=== PATIENT | male | born 1965 | race Caucasian/White ===

== ENCOUNTER 2017-04-14 23:44 | Emergency (ER) | payer MEDICAID ==
[~2017-04-14] VITALS: Ht 162.6 cm; Wt 78.0 kg
[2017-04-14] MEDS ORDERED: fentaNYL INJECTION 100 MCG/2 ML AMP IVP STA (23:51)
[2017-04-14] MEDS ORDERED: PRAZ2CAP PO (23:54)
[2017-04-14] MEDS ORDERED: NORT25CA PO (23:54)
[2017-04-14] MEDS ORDERED: PRAV40TA2 PO (23:54)
[2017-04-14] MEDS ORDERED: OMEP20TA33 PO (23:54)
[2017-04-14] MEDS ORDERED: ASPI-586 PO (23:54)
[2017-04-14] MEDS ORDERED: FLUT1DIS26 IH (23:54)
[2017-04-14] MEDS ORDERED: FAMO40TA72 PO (23:54)
[2017-04-14] MEDS ORDERED: METF1000 PO (23:54)
[2017-04-14] MEDS ORDERED: SUCR1TAB PO (23:54)
[2017-04-14] MEDS ORDERED: ASPI-992 PO (23:54)
[2017-04-14] MEDS ORDERED: SITA25TA5 PO (23:54)
[2017-04-14] MEDS ORDERED: FENO145T2 PO (23:54)
[2017-04-14] MEDS ORDERED: DICY10CA59 PO (23:54)
[2017-04-14] MEDS ORDERED: CALC-250 PO (23:54)
[2017-04-14] MEDS ORDERED: LACT10SO5 PO (23:54)
[2017-04-14] MEDS ORDERED: LEVO100T7 PO (23:54)
[2017-04-14] MEDS ORDERED: RT-ALBUINH IH (23:54)
[2017-04-14] MEDS ORDERED: LISI2.5T PO (23:54)
[2017-04-14] MEDS ORDERED: ONDA4TAB8 PO (23:54)
[2017-04-14] MEDS ORDERED: BUPR100T7 PO (23:54)
[2017-04-14] MEDS ORDERED: CITA40TA11 PO (23:54)
[2017-04-14] MEDS ORDERED: BUSP10TA95 PO (23:54)
[2017-04-14] MEDS ORDERED: GABA-488 PO (23:54)
[2017-04-15] MEDS ORDERED: ONDANSETRON 4 MG/2 ML (SDV) Z0FRAN IVP ONE
[2017-04-15 00:02] LABS: BASOPHILS # (AUTO) 0.1 10^3/uL (0.0-0.1); BASOPHILS % (AUTO) 1 % (0-10); EOSINOPHILS # (AUTO) 0.1 10^3/uL (0.0-0.3); EOSINOPHILS % (AUTO) 1 % (0-10); LYMPHOCYTES # (AUTO) 2.8 X 10^3 (1.0-4.0); LYMPHOCYTES % (AUTO) 27 % (12-44); MEAN CORPUSCULAR HEMOGLOBIN 33 PG (25-34); MEAN CORPUSCULAR HGB CONC 34 G/DL (32-36); MEAN CORPUSCULAR VOLUME 95 FL (80-99); MEAN PLATELET VOLUME 10.9 FL (7.4-10.4); MONOCYTES # (AUTO) 0.7 X 10^3 (0.0-1.0); MONOCYTES % (AUTO) 7 % (0-12); NEUTROPHILS # (AUTO) 6.6 X 10^3 (1.8-7.8); NEUTROPHILS % (AUTO) 64 % (42-75); PLATELET COUNT 141 10^3/uL (130-400); RED BLOOD COUNT 4.48 10^6/uL (4.35-5.85); RED CELL DISTRIBUTION WIDTH 13.4 % (10.0-14.5); WHITE BLOOD COUNT 10.3 10^3/uL (4.3-11.0)
[2017-04-15 00:20] LABS: ALANINE AMINOTRANSFERASE 19 U/L (0-55); ANION GAP 10 MMOL/L (5-14); ASPARTATE AMINO TRANSFERASE 14 U/L (5-34); BILIRUBIN,TOTAL 0.3 MG/DL (0.1-1.0); BLOOD UREA NITROGEN 8 MG/DL (7-18); BUN/CREATININE RATIO 11; CALCIUM 8.9 MG/DL (8.5-10.1); CARBON DIOXIDE 26 MMOL/L (21-32); CHLORIDE 104 MMOL/L (98-107); CREATININE SERUM 0.73 MG/DL (0.60-1.30); GFR ESTIMATED > 60; GLUCOSE 164 MG/DL (70-105); POTASSIUM 3.8 MMOL/L (3.6-5.0); SODIUM 140 MMOL/L (135-145)
--- NOTE | 2017-04-15 00:46 | ED Fall/Injury ---
General Chief Complaint: Trauma-Non Activation Stated Complaint: FALL,HIP PAIN Nursing Triage Note: Patient [place] and hitting head, denies LOC. c-collar in place. c/o R hip pain Source: patient Exam Limitations: no limitations History of Present Illness Time seen by provider: 23:47 Initial Comments [place] she [place] on the bathroom floor. She reports landing on her right buttock and hitting her head on the wall. Complains of right buttock pain and head pain. Denies loss of consciousness. Some mild nausea but no vomiting. Moderate pain reported. Here by EMS. EMS unable to get IV. Occurred: just prior to arrival Severity: moderate (45 minutes ago) Injuries/Pain Location: head, pelvis Context: slipped Loss of Consciousness: no loss of consciousness Modifying Factors: Improves With Immobilization, Worse With Movement Associated Symptoms (Fall): No Abdominal Pain, No Chest Pain, No Confusion, Headache, No Lightheadedness, No Nausea/Vomiting, No Neck Pain Allergies and Home Medications Allergies Coded Allergies: Penicillins (Verified Allergy, Unknown, 04/14/17) amoxicillin (Verified Allergy, Unknown, 04/14/17) ketorolac (Verified Allergy, Unknown, 04/14/17) levofloxacin (Verified Allergy, Unknown, 04/14/17) sumatriptan (Verified Allergy, Unknown, 04/14/17) trazodone (Verified Allergy, Unknown, 04/14/17) Home Medications Albuterol Sulfate 1 Puff Puff, 2 PUFF IH Q4H, (Reported) 1 PUFF = 90 MCG Aspirin 81 Mg Tablet.dr, 81 MG PO, (Reported) Aspirin/Acetaminophen/Caffeine 1 Each Tablet, 1 EACH PO, (Reported) Bupropion HCl 100 Mg Tablet.er, 100 MG PO, (Reported) Buspirone HCl 10 Mg Tablet, 10 MG PO, (Reported) Cholecalciferol 5,000 Unit Capsule, 5,000 UNIT PO, (Reported) Citalopram Hydrobromide 40 Mg Tablet, 40 MG PO, (Reported) Dicyclomine HCl 10 Mg Capsule, 10 MG PO, (Reported) Famotidine 40 Mg Tablet, 40 MG PO, (Reported) Fenofibrate Nanocrystallized 145 Mg Tablet, 145 MG PO, (Reported) Fluticasone/Salmeterol 1 Each Blst.w.dev, 1 EACH IH, (Reported) Gabapentin 300 Mg Capsule, 300 MG PO, (Reported) Lactulose 10 Gm/15 Ml Solution, 10 GM PO, (Reported) Levothyroxine Sodium 100 Mcg Tablet, 100 MCG PO, (Reported) Lisinopril 2.5 Mg Tablet, 2.5 MG PO DAILY, (Reported) Metformin HCl 1,000 Mg Tablet, 1,000 MG PO, (Reported) Nortriptyline HCl 25 Mg Capsule, 25 MG PO, (Reported) Omeprazole Magnesium 20 Mg Tablet.dr, 20 MG PO, (Reported) Ondansetron 4 Mg Tab.rapdis, 4 MG PO, (Reported) Pravastatin Sodium 40 Mg Tablet, 40 MG PO, (Reported) Prazosin HCl 2 Mg Capsule, 2 MG PO, (Reported) Sitagliptin Phosphate 25 Mg Tablet, 25 MG PO, (Reported) Sucralfate 1 Gm Tablet, 1 GM PO, (Reported) Constitutional: see HPI, No chills, No fever Eyes: No Symptoms Reported Ears, Nose, Mouth, Throat: no symptoms reported Respiratory: no symptoms reported Cardiovascular: no symptoms reported Gastrointestinal: see HPI, nausea, No vomiting Genitourinary: no symptoms reported Musculoskeletal: No back pain, joint pain, muscle pain Skin: no symptoms reported Psychiatric/Neurological: Headache (posterior right side aching), Denies Weakness All Other Systems Reviewed Negative Unless Noted: Yes Past Bevhwyd-Bclhff-Sipyig Hx Patient Social History Alcohol Use: Denies Use Recreational Drug Use: No Smoking Status: Former Smoker Recent Foreign Travel: No Contact w/Someone Who Travel: No Recent Infectious Disease Expo: No Recent Hopitalizations: No Physical Abuse: No Sexual Abuse: No Surgeries History of Surgeries: Yes Surgeries: Appendectomy, Gallbladder, Hysterectomy Respiratory History of Respiratory Disorde: Yes Respiratory Disorders: COPD Cardiovascular History of Cardiac Disorders: Yes Cardiac Disorders: High Cholesterol, Hypertension Neurological History of Neurological Disord: No Genitourinary History of Genitourinary Disor: No Gastrointestinal History of Gastrointestinal Di: Yes Gastrointestinal Disorders: Gastroesophageal Reflux Musculoskeletal History of Musculoskeletal Dis: No Endocrine History of Endocrine Disorders: Yes Endocrine Disorders: Hypothyroidsim, Diabetes, Non-Insulin dep HEENT History of HEENT Disorders: No Cancer History of Cancer: No Psychosocial History of Psychiatric Problem: Yes Behavioral Health Disorders: Anxiety, Depression Suicide Risk Score: 0 Integumentary History of Skin or Integumenta: No Reviewed Nursing Assessment Reviewed/Agree w Nursing PMH: Yes Family Medical History Significant Family History: No Pertinent Family Hx Physical Exam Vital Signs Vital Sign - Last 12Hours 04/14/17 23:56 Temp 98.4 Pulse 84 Resp 18 B/P (MAP) 170/80 Pulse Ox 95 Capillary Refill : Less Than 3 Seconds General Appearance: WD/WN, no apparent distress HEENT: PERRL/EOMI, pharynx normal Neck: No tender lateral, No tender midline Cardiovascular: regular rate, rhythm, no murmur Respiratory: lungs clear, normal breath sounds Gastrointestinal: non tender, soft Back: normal inspection, no CVA tenderness, no vertebral tenderness Extremities: pelvis stable, other (tender to that area of the right upper buttock without bruising noted.) Neurologic/Psychiatric: alert, oriented x 3 Skin: normal color, warm/dry, No ecchymosis Eunice Coma Score Best Eye Response: (4) Open Spontaneously Best Verbal Response: (5) Oriented Best Motor Response: (6) Obeys Commands Progress/Results/Core Measures Results/Orders Lab Results Laboratory Tests Test 04/14/17 23:55 Range/Units White Blood Count 10.3 4.3-11.0 10^3/uL Red Blood Count 4.48 4.35-5.85 10^6/uL Hemoglobin 14.7 13.3-17.7 G/DL Hematocrit 43 40-54 % Mean Corpuscular Volume 95 80-99 FL Mean Corpuscular Hemoglobin 33 25-34 PG Mean Corpuscular Hemoglobin Concent 34 32-36 G/DL Red Cell Distribution Width 13.4 10.0-14.5 % Platelet Count 141 130-400 10^3/uL Mean Platelet Volume 10.9 H 7.4-10.4 FL Neutrophils (%) (Auto) 64 42-75 % Lymphocytes (%) (Auto) 27 12-44 % Monocytes (%) (Auto) 7 0-12 % Eosinophils (%) (Auto) 1 0-10 % Basophils (%) (Auto) 1 0-10 % Neutrophils # (Auto) 6.6 1.8-7.8 X 10^3 Lymphocytes # (Auto) 2.8 1.0-4.0 X 10^3 Monocytes # (Auto) 0.7 0.0-1.0 X 10^3 Eosinophils # (Auto) 0.1 0.0-0.3 10^3/uL Basophils # (Auto) 0.1 0.0-0.1 10^3/uL Sodium Level 140 135-145 MMOL/L Potassium Level 3.8 3.6-5.0 MMOL/L Chloride Level 104 98-107 MMOL/L Carbon Dioxide Level 26 21-32 MMOL/L Anion Gap 10 5-14 MMOL/L Blood Urea Nitrogen 8 7-18 MG/DL Creatinine 0.73 0.60-1.30 MG/DL Estimat Glomerular Filtration Rate > 60 BUN/Creatinine Ratio 11 Glucose Level 164 H 70-105 MG/DL Calcium Level 8.9 8.5-10.1 MG/DL Total Bilirubin 0.3 0.1-1.0 MG/DL Aspartate Amino Transf (AST/SGOT) 14 5-34 U/L Alanine Aminotransferase (ALT/SGPT) 19 0-55 U/L Alkaline Phosphatase 73 40-136 U/L Total Protein 7.0 6.4-8.2 GM/DL Albumin 4.0 3.2-4.5 GM/DL My Orders Orders - DIOGO BROWNING MD Cbc With Automated Diff (04/14/17 23:51) Comprehensive Metabolic Panel (04/14/17 23:51) Fentanyl Injection (Sublimaze Injection (04/14/17 23:51) Saline Lock/Iv-Start (04/14/17 23:51) Ondansetron Injection (Zofran Injectio (04/15/17 00:00) Ct Head/Cervical Spine Wo (04/15/17 00:01) Hip, Right, 2 Views (04/15/17 00:01) Pelvis (04/15/17 00:01) Fentanyl Injection (Sublimaze Injection (04/15/17 00:51) Rx-Hydrocodone/Apap 5-325 Mg (Rx-Vicodin (04/15/17 01:45) Medications Given in ED Current Medications Medications Dose Ordered Sig/Brayden Route Start Time Stop Time Status Last Admin Dose Admin Ondansetron HCl 4 mg ONCE ONCE IVP 04/15/17 00:00 04/15/17 00:01 DC 04/14/17 23:59 4 MG Vital Signs/I&O Vital Sign - Last 12Hours 04/14/17 23:56 Temp 98.4 Pulse 84 Resp 18 B/P (MAP) 170/80 Pulse Ox 95 Blood Pressure Mean: 110 Progress Note : Progress Note Seen and evaluated. CT head and neck ordered. X-ray of pelvis and right hip. Basic labs ordered. Fentanyl 75 g IV ordered. Monitor patient. 0048: Patient complaining of persistent pain. Fentanyl 75 g IV ordered. Monitor patient. 0107: No acute fracture of C-spine and no intracranial injury noted. C-collar removed. Patient has full range of motion without pain. 0145: Overall doing better. Discharged home with return precautions. Patient verbalize understanding instructions and agreement with plan. Diagnostic Imaging Diagonstic Imaging: Xray Plain Films/CT/US/NM/MRI: pelvis Comments No acute fracture noted. Diagonstic Imaging: Xray Plain Films/CT/US/NM/MRI: hip Comments Right hip 2 view no acute fracture Diagonstic Imaging: CT Plain Films/CT/US/NM/MRI: c-spine, head Comments No acute intracranial hemorrhage, mass effect, midline shift, herniation or hydrocephalus. C-spine shows no fracture or significant malalignment. Reviewed: Reviewed Night [facility] Study Departure Impression Impression: Primary Impression: Minor head injury without loss of consciousness Qualified Codes: S09.90XA - Unspecified injury of head, initial encounter Additional Impression: Contusion of right hip Qualified Codes: S70.01XA - Contusion of right hip, initial encounter Disposition: HOME, SELF-CARE Condition: Improved Departure-Patient Inst. Referrals: NO,LOCAL PHYSICIAN (PCP/Family) Primary Care Physician Patient Instructions: Contusion (DC), Minor Head Injury (DC) Add. Discharge Instructions: All discharge instructions reviewed with patient and/or family. Voiced understanding. Take medications as directed. Follow-up with your DrAngella in a few days for recheck. Return for worse pain, fever, vomiting, weakness, breathing problems or other concerns as needed. Scripts Hydrocodone/Acetaminophen (Hydrocodon-Acetaminoph 7.5-325) 1 Each Tablet 1 EACH PO Q6H, #10 TAB 0 Refills Prov: DIOGO BROWNING MD 04/15/17 DIOGO BROWNING MD Apr 15, 2017 00:46
[2017-04-15] MEDS ORDERED: fentaNYL INJECTION 100 MCG/2 ML AMP IVP STA (00:51)
[2017-04-15] MEDS ORDERED: RX-HYDROCODONE/APAP 5/325 MG #4 TAB PK PO PRN (01:45)
[2017-04-15] MEDS ORDERED: HYDR-3816 PO (01:47)
[2017-04-15 02:00] VITALS: BP 135/76
--- NOTE | 2017-04-15 07:36 | Diagnostic Imaging Report ---
PROCEDURE: CT head and CT cervical spine without contrast. TECHNIQUE: Multiple contiguous axial images were obtained through the brain and cervical spine without the use of intravenous contrast. Sagittal and coronal reformations through the cervical spine were then performed. INDICATION: Head and neck pain after fall. FINDINGS: The ventricles and sulci are within normal limits. There is no hydrocephalus. There is no midline shift. There is no intracranial mass, hemorrhage, or extra-axial fluid collection. Calvarium is intact. Sinuses and mastoid air cells are clear. There is straightening of the normal cervical lordosis. Vertebral body heights are well maintained. There is no fracture or traumatic subluxation. The odontoid is intact and lateral masses are well aligned. Prevertebral soft tissues are within normal limits. There is mild degenerative disc disease. IMPRESSION: No acute intracranial abnormality. Mild cervical spondylosis without acute fracture or traumatic subluxation. Dictated by: Dictated on workstation # [id number]
--- NOTE | 2017-04-15 07:44 | Diagnostic Imaging Report ---
EXAMINATION: Right hip, 2 views. COMPARISON: None. INDICATION: 51-year-old male, injury. Right hip pain. FINDINGS: The right hip is not dislocated. There is no pronounced joint space loss of the right hip. There are small acetabular osteophytes. There is no identified acute fracture. There are pelvic calcifications that likely relate to phleboliths. There is no identified radiopaque foreign body. IMPRESSION: 1. No identified acute bony abnormality of the right hip. Dictated by: Dictated on workstation # [id number]
--- NOTE | 2017-04-15 07:45 | Diagnostic Imaging Report ---
EXAMINATION: Pelvis, single view. COMPARISON: None. INDICATION: 51-year-old male, injury. Pelvic pain. FINDINGS: Pelvic calcifications compatible with phleboliths. The right hip is not dislocated. The left hip is not obviously dislocated. There is mild degenerative type enthesopathy at the right lesser trochanter. The hip joints are not significantly narrowed. There are very small acetabular osteophytes bilaterally. There is no abnormal widening of the sacroiliac joints or pubic symphysis. There is no identified acute fracture. IMPRESSION: 1. No identified acute bony abnormality of the pelvis. Dictated by: Dictated on workstation # [id number]
== END 2017-04-15 01:58 | disposition home or self-care (01) ==
LOC: ER 23:51
DX: S09.90XA Unspecified injury of head, initial encounter (principal); S70.01XA Contusion of right hip, initial encounter; J44.9 Chronic obstructive pulmonary disease, unspecified; E78.00 Pure hypercholesterolemia, unspecified; I10 Essential (primary) hypertension; K21.9 Gastro-esophageal reflux disease without esophagitis; E03.9 Hypothyroidism, unspecified; E11.9 Type 2 diabetes mellitus without complications; F41.9 Anxiety disorder, unspecified; F32.9 Major depressive disorder, single episode, unspecified; Z79.82 Long term (current) use of aspirin; Z79.84 Long term (current) use of oral hypoglycemic drugs; Z87.891 Personal history of nicotine dependence; Z90.49 Acquired absence of other specified parts of digestive tract; W01.198A Fall on same level from slipping, tripping and stumbling with subsequent striking against other object, initial encounter; Y92.002 Bathroom of unspecified non-institutional (private) residence as the place of occurrence of the external cause
CPT/HCPCS: 36415; 70450; 72125; 72170; 73502; 80053; 85025; 96374; 96375; 96376

== ENCOUNTER 2019-09-06 04:28 | Emergency (ER) | payer MEDICAID, OTHER ==
[~2019-09-06] VITALS: Ht 162.5 cm; Wt 76.2 kg
[~2019-09-06 04:28] MED LIST: ASPI-586 PO; ASPI-992 PO; BUPR100T7 PO; BUSP10TA95 PO; CALC-250 PO; CITA40TA11 PO; DICY10CA59 PO; FAMO40TA72 PO; FENO145T2 PO; FLUT1DIS26 IH; GABA-488 PO; HYDR-34 PO; LACT10SO27 PO; LEVO100T7 PO; LISI2.5T PO; METF-399 PO; NORT25CA PO; OMEP20TA33 PO; ONDA4TAB8 PO; PRAV40TA2 PO; PRAZ2CAP PO; RT-ALBUINH IH; SITA25TA5 PO; SUCR1TAB PO
[2019-09-06] MEDS ORDERED: diphenhydrAMINE 50 MG/ML INJ (BENADRYL) IVP ONE (04:45)
[2019-09-06 05:08] LABS: BASOPHILS % (AUTO) 0 % (0-10); EOSINOPHILS # (AUTO) 0.1 10^3/uL (0.0-0.3); EOSINOPHILS % (AUTO) 1 % (0-10); HEMATOCRIT 35 % (40-54); HEMOGLOBIN 11.6 G/DL (13.3-17.7); LYMPHOCYTES # (AUTO) 2.5 X 10^3 (1.0-4.0); LYMPHOCYTES % (AUTO) 24 % (12-44); MEAN CORPUSCULAR HEMOGLOBIN 30 PG (25-34); MEAN CORPUSCULAR HGB CONC 33 G/DL (32-36); MEAN CORPUSCULAR VOLUME 91 FL (80-99); MEAN PLATELET VOLUME 11.8 FL (7.4-10.4); MONOCYTES # (AUTO) 0.9 X 10^3 (0.0-1.0); MONOCYTES % (AUTO) 8 % (0-12); NEUTROPHILS # (AUTO) 6.8 X 10^3 (1.8-7.8); NEUTROPHILS % (AUTO) 66 % (42-75); PLATELET COUNT 73 10^3/uL (130-400); RED CELL DISTRIBUTION WIDTH 12.9 % (10.0-14.5); WHITE BLOOD COUNT 10.4 10^3/uL (4.3-11.0)
[2019-09-06 05:09] LABS: BILIRUBIN,URINE NEGATIVE (NEGATIVE); CLARITY,URINE CLEAR; COLOR,URINE YELLOW; GLUCOSE, URINE (UA) 3+ (NEGATIVE); KETONES,URINE NEGATIVE (NEGATIVE); LEUKOCYTE ESTERASE ,URINE NEGATIVE (NEGATIVE); NITRITE,URINE NEGATIVE (NEGATIVE); PH,URINE 5.5 (5-9); PROTEIN,URINE NEGATIVE (NEGATIVE)
[2019-09-06 05:18] LABS: BACTERIA,URINE TRACE /HPF; WBC,URINE 0-2 /HPF
[2019-09-06] MEDS ORDERED: ONDANSETRON 4 MG/2 ML (SDV) Z0FRAN IVP ONE (05:30)
[2019-09-06 05:34] VITALS: BP 128/63
[2019-09-06 05:37] LABS: ALANINE AMINOTRANSFERASE 22 U/L (0-55); ALBUMIN 4.1 GM/DL (3.2-4.5); ALKALINE PHOSPHATASE 99 U/L (40-136); BILIRUBIN,TOTAL 0.5 MG/DL (0.1-1.0); BUN/CREATININE RATIO 15; CALCIUM 9.4 MG/DL (8.5-10.1); CARBON DIOXIDE 23 MMOL/L (21-32); CHLORIDE 105 MMOL/L (98-107); CREATININE SERUM 0.82 MG/DL (0.60-1.30); GFR ESTIMATED > 60; GLUCOSE 148 MG/DL (70-105); MAGNESIUM 1.6 MG/DL (1.6-2.4); POTASSIUM 3.8 MMOL/L (3.6-5.0); SODIUM 142 MMOL/L (135-145)
[2019-09-06 05:58] LABS: FREE T4 (FREE THYROXINE) 0.94 NG/DL (0.70-1.48)
[2019-09-06] MEDS ORDERED: fentaNYL INJECTION 100 MCG/2 ML AMP IVP ONE (06:00)
[2019-09-06] MEDS ORDERED: NS IV 1000 ML 1,000 ML IV ONE (06:11)
[2019-09-06] MEDS ORDERED: PROMETHAZINE INJ 25 MG/ML (PHENERGAN) AMP IVP ONE (06:15)
[2019-09-06] MEDS ORDERED: MECLIZINE 25 MG (ANTIVERT) TAB PO ONE (06:15)
--- NOTE | 2019-09-06 06:16 | ED General ---
General Chief Complaint: Neurological Problems Stated Complaint: NAUSEA,SMILEY Nursing Triage Note: patient states she feels like she is on fire. was at the [facility] and all of the sudden she started feeling like she was on fire "clear down to my toes" Nursing Sepsis Screen: No Definite Risk Source of Information: Patient, EMS Exam Limitations: No Limitations (FELA LION MD) History of Present Illness Date Seen by Provider: Sep 06, 2019 Time Seen by Provider: 04:30 Initial Comments This 53-year-old woman presents to the emergency room with complaints of "feeling like I am on fire". She had been out [facility] the [facility] when symptoms presented. She had taken her home medications prior to leaving for the [facility]. She is markedly hypertensive on arrival. Fingerstick blood sugar was 183. She had a very similar episode at [facility] on September 01. This resolved with IV fluids and Benadryl. She has no focal neurologic deficits but has a vertiginous sensation of room spinning. She smokes but denies any drug or alcohol use. She describes history of stroke last February. She has had problems with dizziness with migraines even prior to the stroke. Her stroke affected vision in the right eye and she now wears a patch over the right eye. She reports having thyroid disease and she thought it was explained to her at [facility] that her symptoms were secondary to thyroid problems. Patient vomited on ce prior to assessment. (FELA LION MD) Allergies and Home Medications Allergies Coded Allergies: Penicillins (Verified Allergy, Unknown, 09/06/19) amoxicillin (Verified Allergy, Unknown, 09/06/19) ketorolac (Verified Allergy, Unknown, 09/06/19) levofloxacin (Verified Allergy, Unknown, 09/06/19) sumatriptan (Verified Allergy, Unknown, 09/06/19) trazodone (Verified Allergy, Unknown, 09/06/19) Home Medications Albuterol Sulfate 1 Puff Puff, 2 PUFF IH Q4H, (Reported) 1 PUFF = 90 MCG Hydrocodone Bit/Acetaminophen 1 Each Tablet, 1 EACH PO Q6H Prescribed by: DIOGO BROWNING on 04/15/17 0147 Lisinopril 2.5 Mg Tablet, 2.5 MG PO DAILY, (Reported) Patient Home Medication List Home Medication List Reviewed: Yes (FELA LION MD) Review of Systems Review of Systems Constitutional: no symptoms reported EENTM: no symptoms reported Respiratory: no symptoms reported Cardiovascular: see HPI Gastrointestinal: no symptoms reported Genitourinary: no symptoms reported Musculoskeletal: no symptoms reported Skin: no symptoms reported Psychiatric/Neurological: See HPI Hematologic/Lymphatic: No Symptoms Reported Immunological/Allergic: no symptoms reported (FELA LION MD) Past Bqlwxpj-Zhnytd-Ptgpnk Hx Past Med/Social Hx: Reviewed and Corrections made (FELA LION MD) Patient Social History Alcohol Use: Denies Use Recreational Drug Use: No Smoking Status: Current Everyday Smoker Recent Foreign Travel: No Contact w/Someone Who Travel: No Recent Infectious Disease Expo: No Recent Hopitalizations: No Physical Abuse: No Sexual Abuse: No Mistreated: No Fear: No (FELA LION MD) Past Medical History Surgeries: Yes Appendectomy, Gallbladder, Hysterectomy Respiratory: Yes COPD Cardiac: Yes High Cholesterol, Hypertension Neurological: Yes Headaches /Migraines Genitourinary: No Gastrointestinal: Yes Gastroesophageal Reflux Musculoskeletal: No Endocrine: Yes Hypothyroidsim, Diabetes, Non-Insulin dep HEENT: No Cancer: No Psychosocial: Yes Anxiety, Depression Integumentary: No (FELA LION MD) Family Medical History No Pertinent Family Hx (FELA LION MD) Physical Exam Vital Signs Vital Signs - First Documented 09/06/19 04:30 Temp 36.6 Pulse 112 Resp 20 B/P (MAP) 155/128 (137) (ILYA STALLWORTH DO) Vital Signs Capillary Refill : Less Than 3 Seconds (FELA LION MD) Height, Weight, BMI Height: 5'4.00" Weight: 172lbs. oz. 78.388308pt; 28.00 BMI Method:Stated General Appearance: No Apparent Distress, WD/WN HEENT: Normal ENT Inspection, Pharynx Normal, Other (patch over the right eye. Left eye normal with extraocular movement intact and pupillary response normal) Neck: Normal Inspection Respiratory: Lungs Clear, Normal Breath Sounds, No Accessory Muscle Use, No Respiratory Distress Cardiovascular: Regular Rate, Rhythm, No Edema, Normal Peripheral Pulses Gastrointestinal: Normal Bowel Sounds, Non Tender, Soft Extremity: Normal Inspection, No Pedal Edema Neurologic/Psychiatric: Alert, Oriented x3, No Motor/Sensory Deficits, Normal Mood/Affect, biometric technician II-XII Norm as Tested, Other (normal finger to nose and heel to wright) Skin: Normal Color, Warm/Dry (FELA LION MD) Progress/Results/Core Measures Suspected Sepsis Recent Fever Within 48 Hours: No Infection Criteria Present: None New/Unexplained Altered Menta: No Sepsis Screen: No Definite Risk SIRS Temperature: Pulse: 112 Respiratory Rate: 20 Laboratory Tests 09/06/19 04:45: White Blood Count 10.4 Blood Pressure 128 /63 Mean: 84 Laboratory Tests 09/06/19 04:45: Creatinine 0.82, Platelet Count 73L, Total Bilirubin 0.5 (FELA LION MD) Results/Orders Lab Results Laboratory Tests Test 09/06/19 04:45 09/06/19 04:49 09/06/19 05:04 Range/Units White Blood Count 10.4 4.3-11.0 10^3/uL Red Blood Count 3.85 L 4.35-5.85 10^6/uL Hemoglobin 11.6 L 13.3-17.7 G/DL Hematocrit 35 L 40-54 % Mean Corpuscular Volume 91 80-99 FL Mean Corpuscular Hemoglobin 30 25-34 PG Mean Corpuscular Hemoglobin Concent 33 32-36 G/DL Red Cell Distribution Width 12.9 10.0-14.5 % Platelet Count 73 L 130-400 10^3/uL Mean Platelet Volume 11.8 H 7.4-10.4 FL Neutrophils (%) (Auto) 66 42-75 % Lymphocytes (%) (Auto) 24 12-44 % Monocytes (%) (Auto) 8 0-12 % Eosinophils (%) (Auto) 1 0-10 % Basophils (%) (Auto) 0 0-10 % Neutrophils # (Auto) 6.8 1.8-7.8 X 10^3 Lymphocytes # (Auto) 2.5 1.0-4.0 X 10^3 Monocytes # (Auto) 0.9 0.0-1.0 X 10^3 Eosinophils # (Auto) 0.1 0.0-0.3 10^3/uL Basophils # (Auto) 0.0 0.0-0.1 10^3/uL Sodium Level 142 135-145 MMOL/L Potassium Level 3.8 3.6-5.0 MMOL/L Chloride Level 105 98-107 MMOL/L Carbon Dioxide Level 23 21-32 MMOL/L Anion Gap 14 5-14 MMOL/L Blood Urea Nitrogen 12 7-18 MG/DL Creatinine 0.82 0.60-1.30 MG/DL Estimat Glomerular Filtration Rate > 60 BUN/Creatinine Ratio 15 Glucose Level 148 H 70-105 MG/DL Calcium Level 9.4 8.5-10.1 MG/DL Corrected Calcium 9.3 8.5-10.1 MG/DL Magnesium Level 1.6 1.6-2.4 MG/DL Total Bilirubin 0.5 0.1-1.0 MG/DL Aspartate Amino Transf (AST/SGOT) 13 5-34 U/L Alanine Aminotransferase (ALT/SGPT) 22 0-55 U/L Alkaline Phosphatase 99 40-136 U/L Total Protein 7.0 6.4-8.2 GM/DL Albumin 4.1 3.2-4.5 GM/DL Thyroid Stimulating Hormone (TSH) 11.28 H 0.35-4.94 UIU/ML Free Thyroxine 0.94 0.70-1.48 NG/DL Serum Alcohol < 10 <10 MG/DL Glucometer 182 H 70-110 MG/DL Urine Color YELLOW Urine Clarity CLEAR Urine pH 5.5 5-9 Urine Specific Hickman >=1.030 1.016-1.022 Urine Protein NEGATIVE NEGATIVE Urine Glucose (UA) 3+ H NEGATIVE Urine Ketones NEGATIVE NEGATIVE Urine Nitrite NEGATIVE NEGATIVE Urine Bilirubin NEGATIVE NEGATIVE Urine Urobilinogen 0.2 < = 1.0 MG/DL Urine Leukocyte Esterase NEGATIVE NEGATIVE Urine RBC (Auto) NEGATIVE NEGATIVE Urine RBC NONE /HPF Urine WBC 0-2 /HPF Urine Squamous Epithelial Cells 5-10 /HPF Urine Crystals NONE /LPF Urine Bacteria TRACE /HPF Urine Casts NONE /LPF Urine Mucus NEGATIVE /LPF Urine Culture Indicated NO Urine Opiates Screen NEGATIVE NEGATIVE Urine Oxycodone Screen NEGATIVE NEGATIVE Urine Methadone Screen NEGATIVE NEGATIVE Urine Propoxyphene Screen NEGATIVE NEGATIVE Urine Barbiturates Screen NEGATIVE NEGATIVE Ur Tricyclic Antidepressants Screen NEGATIVE NEGATIVE Urine Phencyclidine Screen NEGATIVE NEGATIVE Urine Amphetamines Screen NEGATIVE NEGATIVE Urine Methamphetamines Screen NEGATIVE NEGATIVE Urine Benzodiazepines Screen NEGATIVE NEGATIVE Urine Cocaine Screen NEGATIVE NEGATIVE Urine Cannabinoids Screen NEGATIVE NEGATIVE (ILYA STALLWORTH DO) My Orders Orders - ILYA STALLWORTH DO Acetaminophen Tablet (Tylenol Tablet) (09/06/19 07:00) Dexamethasone Injection (Decadron Inject (09/06/19 07:00) (ILYA STALLWORTH Claudia BARRIENTOS) Medications Given in ED Current Medications Medications Dose Ordered Sig/Brayden Route Start Time Stop Time Status Last Admin Dose Admin Acetaminophen 1,000 mg ONCE ONCE PO 09/06/19 07:00 09/06/19 07:01 DC 09/06/19 06:58 1,000 MG Dexamethasone Sodium Phosphate 10 mg ONCE ONCE IV 09/06/19 07:00 09/06/19 07:01 DC 09/06/19 06:57 10 MG Diphenhydramine HCl 25 mg ONCE ONCE IVP 09/06/19 04:45 09/06/19 04:46 DC 09/06/19 05:13 25 MG Fentanyl Citrate 50 mcg ONCE ONCE IVP 09/06/19 06:00 09/06/19 06:01 DC 09/06/19 05:54 50 MCG Meclizine HCl 25 mg ONCE ONCE PO 09/06/19 06:15 09/06/19 06:16 DC 09/06/19 06:20 25 MG Ondansetron HCl 4 mg ONCE ONCE IVP 09/06/19 05:30 09/06/19 05:31 DC 09/06/19 05:25 4 MG Promethazine HCl 25 mg ONCE ONCE IVP 09/06/19 06:15 09/06/19 06:16 DC 09/06/19 06:19 25 MG Sodium Chloride 1,000 ml @ 0 mls/hr Q0M ONCE IV 09/06/19 06:11 09/06/19 06:13 DC 09/06/19 06:19 1,000 MLS/HR (JOAQUIN STALLWORTHEleno Taylor DO) Vital Signs/I&O 09/06/19 09/06/19 04:30 05:34 Temp 36.6 Pulse 112 Resp 20 B/P (MAP) 155/128 (137) 128/63 (84) (JOAQUIN STALLWORTHEleno Taylor DO) Vital Signs/I&O Capillary Refill : Less Than 3 Seconds (FELA LION MD) Blood Pressure Mean: 84 Point of Care Testing Finger Stick Blood Glucose: 182 (FELA LION MD) Progress Note : Time: 06:16 Progress Note Patient states the burning sensation improved with Benadryl. However, she is still feeling vertiginous. She states that she often feels this way when she has a migraine. This is been occurring for years and is clearly not a new problem. Fentanyl was given for her headache which she states improved her headache significantly but did not resolve the dizziness. CT of the head was obtained and showed no acute abnormalities. CT report is pending. Patient does have some disequilibrium with walking due to the dizziness. She states this is not new and occurs with her headaches. She is being treated now with Phenergan, IV fluids, and meclizine for her vertigo. Symptoms may be related to atypical migraine. Care of this patient is being transitioned to Dr. Stallworth at this time. (FELA LION MD) Progress Note : Progress Note 0720 patient with a resolved with further treatment. I discussed with her differential includes hormonal change, migraine with aura and other etiologies. I recommend she follow up with her primary care provider. However due to the recurrent nature of it it is likely migrainous in nature. Patient is stable and should follow-up with her primary care provider with her already scheduled appointment. (ILYA STALLWORTH DO) Diagnostic Imaging Diagonstic Imaging: CT Plain Films/CT/US/NM/MRI: head Comments CT head without contrast viewed by me and report reviewed. See report below: NAME: HUMBERTO PONCE [facility] REC#: [id number] PT STATUS: REG ER : 1965 PHYSICIAN: FELA LION MD ADMIT DATE: 09/06/19/ER Draft Date of Exam:09/06/19 CT HEAD WO PROCEDURE: CT head without contrast. TECHNIQUE: Multiple contiguous axial images were obtained through the brain without the use of intravenous contrast. Auto Exposure Controls were utilized during the CT exam to meet ALARA standards for radiation dose reduction. INDICATION: Headache There is no mass, shift to the midline or hemorrhage to suggest an acute intracranial abnormality. The ventricles are not abnormally dilated and stable in size when compared to the prior exam of 04/15/2017. The bone windows show no evidence for a fracture or for a destructive lesion. The orbits and sinuses were not visualized in their entirety. Where visualized, there is no acute abnormality. IMPRESSION: 1. There is no evidence for an acute intracranial abnormality. When compared to the previous study, there has been no significant change. 2. If clinical concern regarding an underlying abnormality persists, then MRI would be recommended for further study. Dictated on workstation # [id number] Dict: 09/06/19629 Trans: 09/06/1934 [facility] [id number] Interpreted by: VU CHAVEZ MD (FELA LION MD) Departure Impression Primary Impression: Paresthesia Additional Impressions: Accelerated hypertension Acute headache Qualified Codes: R51 - Headache Vertigo Disposition: 01 HOME, SELF-CARE Condition: Improved Departure-Patient Inst. Referrals: NO,LOCAL PHYSICIAN (PCP/Family) Primary Care Physician Patient Instructions: Migraine Headaches in Adults Add. Discharge Instructions: Emergency department focuses on treating and ruling out life-threatening diseases. Whenever possible, a diagnosis is given. However, most patients are given an impression based on their history, physical exam, and workup during your brief time in the ER. Information about probable diagnosis and other educational material has been provided. Please take the time to read and understand this information. It is very important that you follow up with a physician as discussed during the visit today. Failure to adhere to your follow-up instructions may lead to severe disability, injury, or so please make sure to keep your appointments or obtain one as requested. Please keep in mind the emergency department is not designed to your primary care or "family doctor" and nonurgent issues are best evaluated by an outpatient physician All discharge instructions reviewed with patient and/or family. Voiced understanding. FELA LION MD Sep 06, 2019 06:16 ILYA STALLWORTH DO Sep 06, 2019 06:47
--- NOTE | 2019-09-06 06:34 | Diagnostic Imaging Report ---
PROCEDURE: CT head without contrast. TECHNIQUE: Multiple contiguous axial images were obtained through the brain without the use of intravenous contrast. Auto Exposure Controls were utilized during the CT exam to meet ALARA standards for radiation dose reduction. INDICATION: Headache There is no mass, shift to the midline or hemorrhage to suggest an acute intracranial abnormality. The ventricles are not abnormally dilated and stable in size when compared to the prior exam of 04/15/2017. The bone windows show no evidence for a fracture or for a destructive lesion. The orbits and sinuses were not visualized in their entirety. Where visualized, there is no acute abnormality. IMPRESSION: 1. There is no evidence for an acute intracranial abnormality. When compared to the previous study, there has been no significant change. 2. If clinical concern regarding an underlying abnormality persists, then MRI would be recommended for further study. Dictated by: Dictated on workstation # [id number]
[2019-09-06 06:48] LABS: AMPHETAMINE SCREEN, URINE NEGATIVE (NEGATIVE); BARBITURATE SCREEN URINE NEGATIVE (NEGATIVE); BENZODIAZEPINES SCREEN URINE NEGATIVE (NEGATIVE); CANNABINOID SCREEN, URINE NEGATIVE (NEGATIVE); COCAINE SCREEN URINE NEGATIVE (NEGATIVE); METHADONE STAT NEGATIVE (NEGATIVE); METHAMPHETAMINE SCREEN URINE S NEGATIVE (NEGATIVE); OPIATE SCREEN URINE NEGATIVE (NEGATIVE); OXYCODONE STAT NEGATIVE (NEGATIVE); PROPOXYPHENE STAT NEGATIVE (NEGATIVE); TRICYCLIC ANTIDEPRESSANTS SCRE NEGATIVE (NEGATIVE)
[2019-09-06] MEDS ORDERED: ACETAMINOPHEN 500 MG TAB (TYLENOL) PO ONE (07:00)
[2019-09-06] MEDS ORDERED: DEXAMETHASONE 4 MG/ML SDV (DECADRON) IV ONE (07:00)
[2019-09-06 08:01] VITALS: BP 136/81
== END 2019-09-06 08:01 | disposition home or self-care (01) ==
LOC: EDUNIT# 04:28 → ER 04:30
DX: R20.2 Paresthesia of skin (principal); I10 Essential (primary) hypertension; R42 Dizziness and giddiness; J44.9 Chronic obstructive pulmonary disease, unspecified; F17.200 Nicotine dependence, unspecified, uncomplicated; Z88.6 Allergy status to analgesic agent; Z88.0 Allergy status to penicillin; Z88.1 Allergy status to other antibiotic agents; Z88.5 Allergy status to narcotic agent
CPT/HCPCS: 36415; 70450; 80053; 80306; 80320; 81000; 82962; 83735; 84439; 84443; 85025; 93041

== ENCOUNTER 2019-11-29 18:47 | Emergency (ER) | payer MEDICAID ==
[~2019-11-29] VITALS: Ht 163 cm; Wt 81.2 kg
[2019-11-29] MEDS ORDERED: INSU100I10 (19:27)
[2019-11-29] MEDS ORDERED: GBPN600T (19:27)
--- NOTE | 2019-11-29 19:28 | ED Chest Pain ---
General Chief Complaint: Trauma-Non Activation Stated Complaint: NAUSEA, BODY ACHES, CP, DIZZINESS Source: patient Exam Limitations: no limitations History of Present Illness Date Seen by Provider: November 29, 2019 Time Seen by Provider: 19:26 Initial Comments To ER with reports of chest wall pain. She states that she tripped over her dog last night and fell landing on an oxygen tank in the center of her chest. She had no pain initially no shortness of breath initially. She awakened this morning with some chest pain that radiates through to the back and up the left shoulder worsened by deep breathing and movement. She saw her heart doctor today, Dr. Pope in [place] who did an EKG and was told her heart was okay. She was advised that if the pain persisted she should return to the emergency room. Timing/Duration: changing over time, 12 hours Severity/Quality: moderate, aching Location: central Radiation: no radiation Activities at Onset: none ASA po AIRPORT OPERATIONS OFFICER: No NTG SL AIRPORT OPERATIONS OFFICER: No Allergies and Home Medications Allergies Coded Allergies: Penicillins (Verified Allergy, Unknown, 09/06/19) amoxicillin (Verified Allergy, Unknown, 09/06/19) ketorolac (Verified Allergy, Unknown, 09/06/19) levofloxacin (Verified Allergy, Unknown, 09/06/19) sumatriptan (Verified Allergy, Unknown, 09/06/19) trazodone (Verified Allergy, Unknown, 09/06/19) Home Medications Albuterol Sulfate 1 Puff Puff, 2 PUFF IH Q4H, (Reported) 1 PUFF = 90 MCG Hydrocodone Bit/Acetaminophen 1 Each Tablet, 1 EACH PO Q6H Prescribed by: DIOGO BROWNING on 04/15/17 0147 Lisinopril 2.5 Mg Tablet, 2.5 MG PO DAILY, (Reported) Patient Home Medication List Home Medication List Reviewed: Yes Review of Systems Review of Systems Constitutional: see HPI EENTM: No Symptoms Reported Respiratory: See HPI Cardiovascular: See HPI, Chest Pain Gastrointestinal: No Symptoms Reported Genitourinary: No Symptoms Reported Musculoskeletal: no symptoms reported Skin: no symptoms reported Psychiatric/Neurological: No Symptoms Reported Endocrine: No Symptoms Reported Past Rtdhptz-Rcbqhx-Hmxuxq Hx Patient Social History Recent Foreign Travel: No Contact w/Someone Who Travel: No Recent Hopitalizations: No Past Medical History Surgeries: Yes Appendectomy, Gallbladder, Hysterectomy Respiratory: Yes COPD Cardiac: Yes High Cholesterol, Hypertension Neurological: Yes Headaches /Migraines 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 oz. 78.042361fy; 28.00 BMI Method:Stated General Appearance: No Apparent Distress, WD/WN HEENT: PERRL/EOMI, TMs Normal Neck: Full Range of Motion, Normal Inspection Respiratory: No Accessory Muscle Use, No Respiratory Distress, Other (Anterior chest has a normal appearance without ecchymosis or abrasion or crepitus to palpation. She does however have significant tenderness to palpation over the sternum) Cardiovascular: Regular Rate, Rhythm, Normal Peripheral Pulses Gastrointestinal: Normal Bowel Sounds, Non Tender, Soft Extremity: Normal Capillary Refill, Normal Inspection Neurologic/Psychiatric: Alert, Oriented x3 Skin: Normal Color, Warm/Dry Progress/Results/Core Measures Results/Orders Lab Results Laboratory Tests Test 11/29/19 19:48 Range/Units White Blood Count 8.1 4.3-11.0 10^3/uL Red Blood Count 4.67 4.35-5.85 10^6/uL Hemoglobin 14.5 11.5-16.0 G/DL Hematocrit 41 35-52 % Mean Corpuscular Volume 88 80-99 FL Mean Corpuscular Hemoglobin 31 25-34 PG Mean Corpuscular Hemoglobin Concent 35 32-36 G/DL Red Cell Distribution Width 13.0 10.0-14.5 % Platelet Count 170 130-400 10^3/uL Mean Platelet Volume 11.0 H 7.4-10.4 FL Neutrophils (%) (Auto) 63 42-75 % Lymphocytes (%) (Auto) 28 12-44 % Monocytes (%) (Auto) 8 0-12 % Eosinophils (%) (Auto) 1 0-10 % Basophils (%) (Auto) 1 0-10 % Neutrophils # (Auto) 5.1 1.8-7.8 X 10^3 Lymphocytes # (Auto) 2.2 1.0-4.0 X 10^3 Monocytes # (Auto) 0.7 0.0-1.0 X 10^3 Eosinophils # (Auto) 0.1 0.0-0.3 10^3/uL Basophils # (Auto) 0.1 0.0-0.1 10^3/uL Sodium Level 134 L 135-145 MMOL/L Potassium Level 3.4 L 3.6-5.0 MMOL/L Chloride Level 101 98-107 MMOL/L Carbon Dioxide Level 18 L 21-32 MMOL/L Anion Gap 15 H 5-14 MMOL/L Blood Urea Nitrogen 7 7-18 MG/DL Creatinine 0.94 0.60-1.30 MG/DL Estimat Glomerular Filtration Rate > 60 BUN/Creatinine Ratio 7 Glucose Level 448 *H 70-105 MG/DL Calcium Level 8.7 8.5-10.1 MG/DL Corrected Calcium 8.6 8.5-10.1 MG/DL Total Bilirubin 0.5 0.1-1.0 MG/DL Aspartate Amino Transf (AST/SGOT) 18 5-34 U/L Alanine Aminotransferase (ALT/SGPT) 27 0-55 U/L Alkaline Phosphatase 109 40-136 U/L Troponin I < 0.028 <0.028 NG/ML Total Protein 7.2 6.4-8.2 GM/DL Albumin 4.1 3.2-4.5 GM/DL Lipase 47 8-78 U/L My Orders Orders - YONG MULLINS APRN Ekg Tracing (11/29/19 19:22) Cbc With Automated Diff (11/29/19 19:22) Troponin I (11/29/19 19:22) BNP (11/29/19 19:22) Comprehensive Metabolic Panel (11/29/19 19:22) Lipase (11/29/19 19:22) Chest Pa/Lat (2 View) (11/29/19 19:22) Ondansetron Oral Dissolve Tab (Zofran (11/29/19 19:30) Hydrocodone/Apap 5/325 Tablet (Lortab 5 (11/29/19 19:30) Insulin Aspart (Novolog) (Novolog (Charg (11/29/19 20:30) Medications Given in ED Current Medications Medications Dose Ordered Sig/Brayden Route Start Time Stop Time Status Last Admin Dose Admin Acetaminophen/ Hydrocodone Bitart 1 tab ONCE ONCE PO 11/29/19 19:30 11/29/19 19:31 DC 11/29/19 19:39 1 TAB Ondansetron HCl 8 mg ONCE ONCE PO 11/29/19 19:30 11/29/19 19:31 DC 11/29/19 19:38 8 MG Vital Signs/I&O 11/29/19 19:11 Temp 36.7 Pulse 96 Resp 18 B/P (MAP) 159/98 (118) Pulse Ox 99 O2 Delivery Room Air Departure Impression Primary Impression: Chest wall contusion Qualified Codes: S20.219A - Contusion of unspecified front wall of thorax, initial encounter Additional Impression: Hyperglycemia Disposition: 01 HOME, SELF-CARE Condition: Stable Departure-Patient Inst. Decision time for Depature: 19:28 Referrals: NO,LOCAL PHYSICIAN (PCP/Family) Primary Care Physician Patient Instructions: Contusion (DC) YONG MULLINS LEGAL ARBITRATOR November 29, 2019 19:28
[2019-11-29] MEDS ORDERED: ONDANSETRON 4 MG (ZOFRAN) ORAL DISSOLVE TAB PO ONE (19:30)
[2019-11-29] MEDS ORDERED: HYDROcodone/APAP 5 MG/325 MG (LORTAB) TAB PO ONE (19:30)
--- NOTE | 2019-11-29 19:44 | Diagnostic Imaging Report ---
INDICATION: Fall, back pain FINDINGS: No focal consolidation, failure, effusion or pneumothorax. IMPRESSION: Negative Dictated by: Dictated on workstation # [id number]
[2019-11-29 19:54] LABS: BASOPHILS # (AUTO) 0.1 10^3/uL (0.0-0.1); BASOPHILS % (AUTO) 1 % (0-10); EOSINOPHILS # (AUTO) 0.1 10^3/uL (0.0-0.3); EOSINOPHILS % (AUTO) 1 % (0-10); HEMATOCRIT 41 % (35-52); HEMOGLOBIN 14.5 G/DL (11.5-16.0); LYMPHOCYTES # (AUTO) 2.2 X 10^3 (1.0-4.0); LYMPHOCYTES % (AUTO) 28 % (12-44); MEAN CORPUSCULAR HEMOGLOBIN 31 PG (25-34); MEAN CORPUSCULAR HGB CONC 35 G/DL (32-36); MEAN CORPUSCULAR VOLUME 88 FL (80-99); MONOCYTES # (AUTO) 0.7 X 10^3 (0.0-1.0); MONOCYTES % (AUTO) 8 % (0-12); NEUTROPHILS # (AUTO) 5.1 X 10^3 (1.8-7.8); NEUTROPHILS % (AUTO) 63 % (42-75); PLATELET COUNT 170 10^3/uL (130-400); WHITE BLOOD COUNT 8.1 10^3/uL (4.3-11.0)
[2019-11-29 20:10] LABS: ALANINE AMINOTRANSFERASE 27 U/L (0-55); ALBUMIN 4.1 GM/DL (3.2-4.5); ALKALINE PHOSPHATASE 109 U/L (40-136); BILIRUBIN,TOTAL 0.5 MG/DL (0.1-1.0); BUN/CREATININE RATIO 7; CALCIUM 8.7 MG/DL (8.5-10.1); CARBON DIOXIDE 18 MMOL/L (21-32); CHLORIDE 101 MMOL/L (98-107); CREATININE SERUM 0.94 MG/DL (0.60-1.30); GFR ESTIMATED > 60; LIPASE 47 U/L (8-78); POTASSIUM 3.4 MMOL/L (3.6-5.0); SODIUM 134 MMOL/L (135-145); TOTAL PROTEIN 7.2 GM/DL (6.4-8.2)
[2019-11-29 20:19] LABS: GLUCOSE 448 MG/DL (70-105)
--- OUTSIDE RECORDS SUMMARY | 2019-11-29 20:28 | XMS REPORT | Continuity of Care Document ---
Author Organization Unknown Address Unknown Phone Unavailable Allergies Active Description Code Type Severity Reaction Onset Reported/Identified Relationship to Patient Clinical Status Yes amoxicillin [id number] Drug Aller gy Unknown N/A 09/06/2019 Yes ketorolac [id number] Drug Allergy Unknown N/A 09/06/2019 Yes levofloxacin [id number] Drug Allergy Unknown N/A 09/06/2019 Yes Penicillins [id number] Drug Aller gy Unknown N/A 09/06/2019 Yes sumatriptan [id number] Drug Aller gy Unknown N/A 09/06/2019 Yes trazodone [id number] Drug Allergy Unknown N/A 09/06/2019 Medications There is no data. Problems Date Dx Coded Attending Type Code Diagnosis Diagnosed By 04/15/2017 DIOGO BROWNING MD, Ot E03.9 HYPOTHYROIDISM, UNSPECIFIED 04/15/2017 DIOGO BROWNING MD Ot E11.9 TYPE 2 DIABETES MELLITUS WITHOUT COMPLIC 04/15/2017 DIOGO BROWNING MD, Ot E78.00 PURE HYPERCHOLESTEROLEMIA, UNSPECIFIED 04/15/2017 DIOGO BROWNING MD, Ot F32.9 MAJOR DEPRESSIVE DISORDER, SINGLE EPISOD 04/15/2017 DIOGO BROWNING MD, Ot F41.9 ANXIETY DISORDER, UNSPECIFIED 04/15/2017 DIOGO BROWNING MD, Ot I10 ESSENTIAL (PRIMARY) HYPERTENSION 04/15/2017 DIOGO BROWNING MD, Ot J44.9 CHRONIC OBSTRUCTIVE PULMONARY DISEASE, U 04/15/2017 DIOGO BROWNING MD, Ot K21.9 GASTRO-ESOPHAGEAL REFLUX DISEASE WITHOUT 04/15/2017 DIOGO BROWNING MD, Ot M54.5 LOW BACK PAIN 04/15/2017 DIOGO BROWNING MD, Ot S09.90XA UNSPECIFIED INJURY OF HEAD, INITIAL ENCO 04/15/2017 DIOGO BROWNING MD, Ot S70.01XA CONTUSION OF RIGHT HIP, INITIAL ENCOUNTE 04/15/2017 DIOGO BROWNING MD Ot W01.198A FALL SAME LEV FROM SLIP/TRIP W STRIKE AG 04/15/2017 DIOGO BRONWING MD Ot Y92.002 BATHRM OF [facility] SN[facility] 04/15/2017 DIOGO BROWNING MD, Ot Z79.82 RETIREMENT (CURRENT) USE OF ASPIRIN 04/15/2017 DIOGO BROWNING MD Ot 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 04/15/2017 DIOGO BROWNING MD Ot Z87.891 PERSONAL HISTORY OF NICOTINE DEPENDENCE 04/15/2017 DIOGO BROWNING MD Ot Z90.49 ACQUIRED ABSENCE OF OTHER SPECIFIED PART 09/06/2019 STALLWORTH DO, ILYA L Ot F17.2 00 NICOTINE DEPENDENCE, UNSPECIFIED, UNCOMP 09/06/2019 STALLWORTH DO, ILYA L Ot I10 ESSENTIAL (PRIMARY) HYPERTENSION 09/06/2019 STALLWORTH DO, ILYA L Ot J44.9 CHRONIC OBSTRUCTIVE PULMONARY DISEASE, U 09/06/2019 STALLWORTH DO, ILYA L Ot R11.0 NAUSEA 09/06/2019 STALLWORTH DO, ILYA L Ot R20.2 PARESTHESIA OF SKIN 09/06/2019 STALLWORTH DO, ILYA L Ot R42 DIZZINESS AND GIDDINESS 09/06/2019 STALLWORTH DO, ILYA L Ot Z88.0 ALLERGY STATUS TO PENICILLIN 09/06/2019 STALLWORTH DO, ILYA L Ot Z88.1 ALLERGY STATUS TO OTHER ANTIBIOTIC AGENT 09/06/2019 STALLWORTH DO, ILYA L Ot Z88.5 ALLERGY STATUS TO NARCOTIC AGENT STATUS 09/06/2019 STALLWORTH DO, ILYA L Ot Z88.6 ALLERGY STATUS TO ANALGESIC AGENT STATUS 09/09/2019 STALLWORTH DO, ILYA L Ot F17.2 00 NICOTINE DEPENDENCE, UNSPECIFIED, UNCOMP 09/09/2019 STALLWORTH DO, ILYA L Ot I10 ESSENTIAL (PRIMARY) HYPERTENSION 09/09/2019 STALLWORTH DO, ILYA L Ot J44.9 CHRONIC OBSTRUCTIVE PULMONARY DISEASE, U 09/09/2019 STALLWORTH DO, ILYA L Ot R11.0 NAUSEA 09/09/2019 STALLWORTH DO, ILYA L Ot R20.2 PARESTHESIA OF SKIN 09/09/2019 STALLWORTH DO, ILYA L Ot R42 DIZZINESS AND GIDDINESS 09/09/2019 STALLWORTH DO, ILYA L Ot Z88.0 ALLERGY STATUS TO PENICILLIN 09/09/2019 STALLWORTH DO, ILYA L Ot Z88.1 ALLERGY STATUS TO OTHER ANTIBIOTIC AGENT 09/09/2019 STALLWORTH DO, ILYA L Ot Z88.5 ALLERGY STATUS TO NARCOTIC AGENT STATUS 09/09/2019 STALLWORTH DO, ILYA L Ot Z88.6 ALLERGY STATUS TO ANALGESIC AGENT STATUS Procedures There is no data. Results Test Result Range Complete blood count (CBC) with automate d white blood cell (WBC) differential - 04/14/17 23:55 Blood leukocytes automated count (number/volume) 10.3 10*3/uL 4.3-11.0 Blood erythrocytes automated count (number/volume) 4.48 10*6/uL 4.35-5.85 Venous blood hemoglobin measurement (mass/volume) 14.7 g/dL 13.3-17.7 Blood hematocrit (volume fraction) 43 % 40-54 Automated erythrocyte mean corpuscular volume 95 [ foz_us] 80-99 Automated erythrocyte mean corpuscular h emoglobin (mass per erythrocyte) 33 pg 25-34 Automated erythrocyte mean corpuscular h emoglobin concentration measurement (mass/volume) 34 g/dL 32-36 Automated erythrocyte distribution width ratio 13. 4 % 10.0- 14.5 Automated blood platelet count (count/volume) 141 10*3/uL 130-400 Automated blood platelet mean volume measurement 10.9 [foz_us] 7.4-10.4 Automated blood neutrophils/100 leukocytes 64 % 42-75 Automated blood lymphocytes/100 leukocytes 27 % 12-44 Blood monocytes/100 leukocytes 7 % 0-12 Automated blood eosinophils/100 leukocytes 1 % 0-10 Automated blood basophils/100 leukocytes 1 % 0-10 Blood neutrophils automated count (number/volume) 6.6 10*3 1.8-7.8 Blood lymphocytes automated count (number/volume) 2.8 10*3 1.0-4.0 Blood monocytes automated count (number/volume) 0. 7 10*3 0.0-1.0 Automated eosinophil count 0.1 10*3/uL 0 .0-0.3 Automated blood basophil count (count/volume) 0.1 10*3/uL 0.0-0.1 Comprehensive metabolic panel - 04/14/17 23:55 Serum or plasma sodium measurement (moles/volume) 140 mmol/L 135-145 Serum or plasma potassium measurement (moles/volume) 3.8 mmol/L 3.6-5.0 Serum or plasma chloride measurement (moles/volume) 104 mmol/L 98-107 Carbon dioxide 26 mmol/L 21-32 Serum or plasma anion gap determination (moles/volume) 10 mmol/L 5-14 Serum or plasma urea nitrogen measurement (mass/volume ) 8 mg/dL 7-18 Serum or plasma creatinine measurement (mass/volume) 0.73 mg/dL 0.60-1.30 Serum or plasma urea nitrogen/creatinine mass ratio 11 NRG Serum or plasma creatinine measurement w ith calculation of estimated glomerular filtration rate > NRG Serum or plasma glucose measurement (mass/volume) 164 mg/dL 70-105 Serum or plasma calcium measurement (mass/volume) 8.9 mg/dL 8.5-10.1 Serum or plasma total bilirubin measurement (mass/volu me) 0.3 mg/dL 0.1-1.0 Serum or plasma alkaline phosphatase robert surement (enzymatic activity/volume) 73 U/L 40-136 Serum or plasma aspartate aminotransfera se measurement (enzymatic activity/volume) 14 U/L 5-34 Serum or plasma alanine aminotransferase measurement (enzymatic activity/volume) 19 U/L 0-55 Serum or plasma protein measurement (mass/volume) 7.0 g/dL 6.4-8.2 Serum or plasma albumin measurement (mass/volume) 4.0 g/dL 3.2-4.5 Complete blood count (CBC) with automate d white blood cell (WBC) differential - 09/06/19 04:45 Blood leukocytes automated count (number/volume) 10.4 10*3/uL 4.3-11.0 Blood erythrocytes automated count (number/volume) 3.85 10*6/uL 4.35-5.85 Venous blood hemoglobin measurement (mass/volume) 11.6 g/dL 13.3-17.7 Blood hematocrit (volume fraction) 35 % 40-54 Automated erythrocyte mean corpuscular volume 91 [ foz_us] 80-99 Automated erythrocyte mean corpuscular h emoglobin (mass per erythrocyte) 30 pg 25-34 Automated erythrocyte mean corpuscular h emoglobin concentration measurement (mass/volume) 33 g/dL 32-36 Automated erythrocyte distribution width ratio 12. 9 % 10.0- 14.5 Automated blood platelet count (count/volume) 73 1 0*3/uL 130-400 Automated blood platelet mean volume measurement 11.8 [foz_us] 7.4-10.4 Automated blood neutrophils/100 leukocytes 66 % 42-75 Automated blood lymphocytes/100 leukocytes 24 % 12-44 Blood monocytes/100 leukocytes 8 % 0-12 Automated blood eosinophils/100 leukocytes 1 % 0-10 Automated blood basophils/100 leukocytes 0 % 0-10 Blood neutrophils automated count (number/volume) 6.8 10*3 1.8-7.8 Blood lymphocytes automated count (number/volume) 2.5 10*3 1.0-4.0 Blood monocytes automated count (number/volume) 0. 9 10*3 0.0-1.0 Automated eosinophil count 0.1 10*3/uL 0 .0-0.3 Automated blood basophil count (count/volume) 0.0 10*3/uL 0.0-0.1 Comprehensive metabolic panel - 09/06/19 04:45 Serum or plasma sodium measurement (moles/volume) 142 mmol/L 135-145 Serum or plasma potassium measurement (moles/volume) 3.8 mmol/L 3.6-5.0 Serum or plasma chloride measurement (moles/volume) 105 mmol/L 98-107 Carbon dioxide 23 mmol/L 21-32 Serum or plasma anion gap determination (moles/volume) 14 mmol/L 5-14 Serum or plasma urea nitrogen measurement (mass/volume ) 12 mg/dL 7-18 Serum or plasma creatinine measurement (mass/volume) 0.82 mg/dL 0.60-1.30 Serum or plasma urea nitrogen/creatinine mass ratio 15 NRG Serum or plasma creatinine measurement w ith calculation of estimated glomerular filtration rate > NRG Serum or plasma glucose measurement (mass/volume) 148 mg/dL 70-105 Serum or plasma calcium measurement (mass/volume) 9.4 mg/dL 8.5-10.1 Serum or plasma total bilirubin measurement (mass/volu me) 0.5 mg/dL 0.1-1.0 Serum or plasma alkaline phosphatase robert surement (enzymatic activity/volume) 99 U/L 40-136 Serum or plasma aspartate aminotransfera se measurement (enzymatic activity/volume) 13 U/L 5-34 Serum or plasma alanine aminotransferase measurement (enzymatic activity/volume) 22 U/L 0-55 Serum or plasma protein measurement (mass/volume) 7.0 g/dL 6.4-8.2 Serum or plasma albumin measurement (mass/volume) 4.1 g/dL 3.2-4.5 CALCIUM CORRECTED 9.3 mg/dL 8.5-10.1 Magnesium - 09/06/19 04:45 Magnesium 1.6 mg/dL 1.6-2.4 THYROID STIMULATING HORMONE - 09/06/19 0 4:45 THYROID STIMULATING HORMONE 11.28 u[iU]/mL 0.35-4.94 Serum or plasma thyroxine (T4) free aubrey urement (mass/volume) - 09/06/19 04:45 Serum or plasma thyroxine (T4) free measurement (mass/ volume) 0.94 ng/dL 0.70-1.48 Serum or plasma ethanol measurement (mas s/volume) - 09/06/19 04:45 Serum or plasma ethanol measurement (mass/volume) < mg/dL <10 Capillary blood glucose measurement by g lucometer (mass/volume) - 09/06/19 04:49 Capillary blood glucose measurement by glucometer (mas s/volume) 182 mg/dL 70-110 Complete urinalysis with reflex to cultu re - 09/06/19 05:04 Urine color determination YELLOW NRG Urine clarity determination CLEAR NR G Urine pH measurement by test strip 5.5 5-9 Specific gravity of urine by test strip >= 1.016-1.022 Urine protein assay by test strip, semi-quantitative NEGATIVE NEGATIVE Urine glucose detection by automated test strip 3+ NEGATIVE Erythrocytes detection in urine sediment by light micr oscopy NEGATIVE NEGATIVE Urine ketones detection by automated test strip NE GATIVE NEGATIVE Urine nitrite detection by test strip NEGATIVE NEGATIVE Urine total bilirubin detection by test strip NEGA TIVE NEGATIVE Urine urobilinogen measurement by automated test strip (mass/volume) 0.2 mg/dL < = 1.0 Urine leukocyte esterase detection by dipstick NEG ATIVE NEGATIVE Automated urine sediment erythrocyte cou nt by microscopy (number/high power field) NONE NRG Automated urine sediment leukocyte count by microscopy (number/high power field) [HPF] NRG Bacteria detection in urine sediment by light microsco py TRACE NRG Squamous epithelial cells detection in u rine sediment by light microscopy 5-10 NRG Crystals detection in urine sediment by light microsco py NONE NRG Casts detection in urine sediment by light microscopy NONE NRG Mucus detection in urine sediment by light microscopy NEGATIVE NRG Complete urinalysis with reflex to culture NO NRG Urine drug screening test - 09/06/19 05: 04 Urine phencyclidine detection by screening method NEGATIVE NEGATIVE Urine benzodiazepines detection by screening method NEGATIVE NEGATIVE Urine cocaine detection NEGATIVE NEGATI VE Urine amphetamines detection by screening method N EGATIVE NEGATIVE Urine methamphetamine detection by screening method NEGATIVE NEGATIVE Urine cannabinoids detection by screening method N EGATIVE NEGATIVE Urine opiates detection by screening method NEGATI VE NEGATIVE Urine barbiturates detection NEGATIVE N EGATIVE Screening urine tricyclic antidepressants detection NEGATIVE NEGATIVE Urine methadone detection by screening method NEGA TIVE NEGATIVE Urine oxycodone detection NEGATIVE NEGA TIVE Urine propoxyphene detection NEGATIVE N EGATIVE Encounters ACCT No. Visit Date/Time Discharge Status Pt. Type Provider Facility Loc./Unit Complaint [id number] 09/06/2019 04:30:00 020 08:01:00 DIS Emergency ILYA STALLWORTH DO [facility] [address] ER NAUSEA,SMILEY [id number] 04/14/2017 23:51:00 017 01:58:00 DIS Emergency NALLELY MARTINEZ, DIOGO [place] [facility] [address] ER FALL,HIP PAIN
[2019-11-29] MEDS ORDERED: inSUlin ASPART (NovoLOG) 1 UNIT/0.01 ML (CHARGE PER UNIT) SC SCH (20:30)
[2019-11-29] MEDS ORDERED: KCL 10 MEQ TAB (MICRO K) PO ONE (20:30)
[2019-11-29 21:35] VITALS: BP 135/72
[2019-11-29 21:43] LABS: BILIRUBIN,URINE NEGATIVE (NEGATIVE); CLARITY,URINE CLEAR; COLOR,URINE YELLOW; GLUCOSE, URINE (UA) 3+ (NEGATIVE); KETONES,URINE NEGATIVE (NEGATIVE); LEUKOCYTE ESTERASE ,URINE NEGATIVE (NEGATIVE); NITRITE,URINE NEGATIVE (NEGATIVE); PROTEIN,URINE NEGATIVE (NEGATIVE)
[2019-11-29 21:49] LABS: BACTERIA,URINE TRACE /HPF; WBC,URINE RARE /HPF; YEAST,URINE FEW /HPF
== END 2019-11-29 21:37 | disposition home or self-care (01) ==
LOC: EDUNIT# 18:47 → EDSEX 18:48 → ER 18:48
DX: S20.219A Contusion of unspecified front wall of thorax, initial encounter (principal); E11.65 Type 2 diabetes mellitus with hyperglycemia; I10 Essential (primary) hypertension; J44.9 Chronic obstructive pulmonary disease, unspecified; Z88.0 Allergy status to penicillin; Z88.5 Allergy status to narcotic agent; Z88.6 Allergy status to analgesic agent; Z88.1 Allergy status to other antibiotic agents; W01.198A Fall on same level from slipping, tripping and stumbling with subsequent striking against other object, initial encounter
CPT/HCPCS: 36415; 71046; 80053; 81000; 82962; 83690; 83880; 84484; 85025; 93005

== ENCOUNTER 2020-10-29 16:29 | Emergency (ER) | payer MEDICAID ==
[~2020-10-29] VITALS: Ht 162.6 cm; Wt 73.5 kg
[~2020-10-29 16:29] MED LIST changes: +GBPN600T; +INSU100I10
[2020-10-29] MEDS ORDERED: fentaNYL INJ 100 MCG/2 ML AMP IVP ONE (16:45)
[2020-10-29] MEDS ORDERED: ONDANSETRON 4 MG/2 ML (SDV) Z0FRAN IVP ONE (16:45)
[2020-10-29] MEDS ORDERED: FAMOTIDINE 20MG/2ML IV (PEPCID) IVP ONE (16:45)
--- NOTE | 2020-10-29 17:01 | Diagnostic Imaging Report ---
INDICATION: Chest pain. COMPARISON: 11/29/2019. FINDINGS: A single frontal view of the chest demonstrates normal heart size and pulmonary vascularity. The lungs are well aerated and clear. No large pleural effusion or pneumothorax is seen. The visualized osseous structures show no acute abnormalities. IMPRESSION: No acute cardiopulmonary process. Dictated by: Dictated on workstation # [id number]
[2020-10-29 17:29] LABS: BASOPHILS # (AUTO) 0.1 10^3/uL (0.0-0.1); BASOPHILS % (AUTO) 1 % (0-10); EOSINOPHILS # (AUTO) 0.1 10^3/uL (0.0-0.3); EOSINOPHILS % (AUTO) 1 % (0-10); HEMATOCRIT 40 % (35-52); HEMOGLOBIN 13.1 g/dL (11.5-16.0); LYMPHOCYTES # (AUTO) 2.9 10^3/uL (1.0-4.0); LYMPHOCYTES % (AUTO) 28 % (12-44); MEAN CORPUSCULAR HEMOGLOBIN 30 pg (25-34); MEAN CORPUSCULAR HGB CONC 33 g/dL (32-36); MEAN CORPUSCULAR VOLUME 90 fL (80-99); MEAN PLATELET VOLUME 11.5 fL (9.0-12.2); MONOCYTES # (AUTO) 0.7 10^3/uL (0.0-1.0); MONOCYTES % (AUTO) 6 % (0-12); NEUTROPHILS # (AUTO) 6.9 10^3/uL (1.8-7.8); NEUTROPHILS % (AUTO) 65 % (42-75); PLATELET COUNT 153 10^3/uL (130-400); WHITE BLOOD COUNT 10.6 10^3/uL (4.3-11.0)
[2020-10-29 17:41] LABS: INR 0.9 (0.8-1.4); PROTHROMBIN TIME PATIENT 12.4 SEC (12.2-14.7)
[2020-10-29 17:42] LABS: ALBUMIN 3.8 GM/DL (3.2-4.5); POTASSIUM 3.4 MMOL/L (3.6-5.0)
[2020-10-29 17:43] LABS: CALCIUM 8.2 MG/DL (8.5-10.1)
[2020-10-29 17:44] LABS: TOTAL PROTEIN 6.2 GM/DL (6.4-8.2)
[2020-10-29 17:46] LABS: BILIRUBIN,TOTAL 0.5 MG/DL (0.1-1.0)
[2020-10-29 17:48] LABS: CREATININE SERUM 1.03 MG/DL (0.60-1.30)
[2020-10-29 17:49] LABS: LIPASE 53 U/L (8-78)
[2020-10-29 17:51] LABS: MAGNESIUM 1.8 MG/DL (1.6-2.4)
[2020-10-29] MEDS ORDERED: morphine INJ 10 MG/ML 1ML (SYR OR VIAL) IVP STA (18:01)
--- NOTE | 2020-10-29 18:07 | ED Chest Pain ---
General Chief Complaint: Chest Pain Stated Complaint: CP Source: patient Exam Limitations: no limitations (FELA LION MD) History of Present Illness Date Seen by Provider: Oct 29, 2020 Time Seen by Provider: 16:45 Initial Comments This 54-year-old woman presents to the emergency room with complaints of lower chest pain that radiates into her neck and sick spine area. She was at the [facility] when the symptoms started tonight. She was actually seen a couple of days ago at the clinic for sore throat. She was prescribed steroids and antibiotics for tonsillitis. After starting those medications she reports having some green bowel movements. Bowel movements have returned to normal today. She reports associated nausea and vomiting. She denies fever, cough, or new shortness of breath. Pain is waxing and waning and fairly severe at times. Patient has known vascular disease and reports having bilateral carotid stents and an aortic valve procedure. Movement makes her pain worse. Her mid thoracic back does seem to be tender to palpation. (FELA LION MD) Allergies and Home Medications Allergies Coded Allergies: Penicillins (Verified Allergy, Unknown, 09/06/19) amoxicillin (Verified Allergy, Unknown, 09/06/19) ketorolac (Verified Allergy, Unknown, 09/06/19) levofloxacin (Verified Allergy, Unknown, 09/06/19) sumatriptan (Verified Allergy, Unknown, 09/06/19) trazodone (Verified Allergy, Unknown, 09/06/19) Home Medications Albuterol Sulfate 1 Puff Puff, 2 PUFF IH Q4H, (Reported) 1 PUFF = 90 MCG Hydrocodone Bit/Acetaminophen 1 Each Tablet, 1 EACH PO Q6H Prescribed by: DIOGO BROWNIGN on 04/15/17 0147 Lisinopril 2.5 Mg Tablet, 2.5 MG PO DAILY, (Reported) Patient Home Medication List Home Medication List Reviewed: Yes (FELA LION MD) Review of Systems Review of Systems Constitutional: no symptoms reported EENTM: No Symptoms Reported Respiratory: No Symptoms Reported Cardiovascular: See HPI Gastrointestinal: See HPI Genitourinary: No Symptoms Reported Musculoskeletal: see HPI Skin: no symptoms reported Psychiatric/Neurological: No Symptoms Reported Endocrine: No Symptoms Reported Hematologic/Lymphatic: No Symptoms Reported (FELA LION MD) Past Bkoppfe-Ocsayl-Ibeuul Hx Past Med/Social Hx: Reviewed Nursing Past Med/Soc Hx, Reviewed and Corrections made (FELA LION MD) Patient Social History Alcohol Use: Denies Use Smoking Status: Current Everyday Smoker Type Used: Cigarettes 2nd Hand Smoke Exposure: Yes Recent Hopitalizations: No (FELA LION MD) Seasonal Allergies Seasonal Allergies: Yes (FELA LION MD) Past Medical History Surgeries: Yes (HEART CATH) Appendectomy, Ear Surgery, Gallbladder, Hysterectomy, Tubal Ligation, Vascular S urgery (Bilateral carotid stenting, aortic valve procedure) Respiratory: Yes Asthma, COPD Currently Using CPAP: No Currently Using BIPAP: No Cardiac: Yes High Cholesterol, Hypertension, Peripheral Vascular Neurological: Yes Headaches /Migraines, TIA 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 oz. 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 as Tested Skin: Normal Color, Warm/Dry (FELA LION MD) Progress/Results/Core Measures Results/Orders Lab Results Laboratory Tests Test 10/29/20 17:24 10/29/20 19:45 Range/Units White Blood Count 10.6 4.3-11.0 10^3/uL Red Blood Count 4.40 3.80-5.11 10^6/uL Hemoglobin 13.1 11.5-16.0 g/dL Hematocrit 40 35-52 % Mean Corpuscular Volume 90 80-99 fL Mean Corpuscular Hemoglobin 30 25-34 pg Mean Corpuscular Hemoglobin Concent 33 32-36 g/dL Red Cell Distribution Width 12.7 10.0-14.5 % Platelet Count 153 130-400 10^3/uL Mean Platelet Volume 11.5 9.0-12.2 fL Immature Granulocyte % (Auto) 0 % Neutrophils (%) (Auto) 65 42-75 % Lymphocytes (%) (Auto) 28 12-44 % Monocytes (%) (Auto) 6 0-12 % Eosinophils (%) (Auto) 1 0-10 % Basophils (%) (Auto) 1 0-10 % Neutrophils # (Auto) 6.9 1.8-7.8 10^3/uL Lymphocytes # (Auto) 2.9 1.0-4.0 10^3/uL Monocytes # (Auto) 0.7 0.0-1.0 10^3/uL Eosinophils # (Auto) 0.1 0.0-0.3 10^3/uL Basophils # (Auto) 0.1 0.0-0.1 10^3/uL Immature Granulocyte # (Auto) 0.0 0.0-0.1 10^3/uL Prothrombin Time 12.4 12.2-14.7 SEC INR Comment 0.9 0.8-1.4 Activated Partial Thromboplast Time 22 L 24-35 SEC D-Dimer 0.38 0.00-0.49 UG/ML Sodium Level 140 135-145 MMOL/L Potassium Level 3.4 L 3.6-5.0 MMOL/L Chloride Level 103 98-107 MMOL/L Carbon Dioxide Level 23 21-32 MMOL/L Anion Gap 14 5-14 MMOL/L Blood Urea Nitrogen 15 7-18 MG/DL Creatinine 1.03 0.60-1.30 MG/DL Estimat Glomerular Filtration Rate 56 BUN/Creatinine Ratio 15 Glucose Level 283 H 70-105 MG/DL Calcium Level 8.2 L 8.5-10.1 MG/DL Corrected Calcium 8.4 L 8.5-10.1 MG/DL Magnesium Level 1.8 1.6-2.4 MG/DL Total Bilirubin 0.5 0.1-1.0 MG/DL Aspartate Amino Transf (AST/SGOT) 15 5-34 U/L Alanine Aminotransferase (ALT/SGPT) 23 0-55 U/L Alkaline Phosphatase 98 40-136 U/L Myoglobin 14.2 10.0-92.0 NG/ML Troponin I < 0.028 < 0.028 <0.028 NG/ML Total Protein 6.2 L 6.4-8.2 GM/DL Albumin 3.8 3.2-4.5 GM/DL Lipase 53 8-78 U/L (TWYLA AGUILA) My Orders Orders - TWYLA AGUILA Troponin I (10/29/20 19:37) (TWYLA AGUILA) Medications Given in ED Current Medications Medications Dose Ordered Sig/Brayden Route Start Time Stop Time Status Last Admin Dose Admin Famotidine 20 mg ONCE ONCE IVP 10/29/20 16:45 10/29/20 16:48 DC 10/29/20 17:07 20 MG Fentanyl Citrate 50 mcg ONCE ONCE IVP 10/29/20 16:45 10/29/20 16:48 DC 10/29/20 17:07 50 MCG Ondansetron HCl 8 mg ONCE ONCE IVP 10/29/20 16:45 10/29/20 16:48 DC 10/29/20 17:06 8 MG (TWYLA AGUILA) Vital Signs/I&O 10/29/20 16:30 Temp 37.1 Pulse 99 Resp 21 B/P (MAP) 105/92 (96) (TWYLA AGUILA) Progress Progress Note : Time: 18:30 Progress Note Patient was seen and examined shortly after arrival. Her initial work-up was unremarkable. Pain was treated with fentanyl. Nausea was treated with Zofran and Pepcid. Patient had escalating pain despite fentanyl. Morphine has now been ordered for further pain treatment. CT angiogram of the chest did not angiogram abdomen and pelvis imaging has been ordered. Patient has a history of vascular pathologies. Aortic pathology should be ruled out with CT imaging. Care of this patient is being transitioned to Dr. Aguila at this time. (FELA LION MD) Progress Note #1: Time: 19:35 Progress Note Assumed care of the patient at 1830. I agree with the above documented history physical exam and plan as laid out by Dr. Bowers. Her D-dimer is unremarkable making and a dissecting aortic aneurysm much less likely however we did get a CT without IV contrast because the IV in her right forearm blew. The imaging was reassuring. 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 Progress Note #2: Time: 20:33 Progress Note Patient is still pain-free. She suspects that her pain may have been from her sore throat which she is on 2 days of antibiotics so far. We have encouraged her to follow-up in the next week with cardiology outpatient. (WTYLA AGUILA) Initial ECG Impression Date: Oct 29, 2020 Initial ECG Impression Time: 16:32 Initial ECG Rate: 88 Initial ECG Rhythm: Normal Sinus Initial ECG Impression: Normal Comment Normal sinus rhythm with no ST elevation or depression. No abnormal intervals or axis deviation. (FELA LION MD) Diagnostic Imaging Diagonstic Imaging: Xray Plain Films/CT/US/NM/MRI: chest Comments Chest x-ray reviewed by me and report reviewed. See report below: NAME[facility] REC#: [id number] PT STATUS: REG ER : 1965 PHYSICIAN: FELA LION MD ADMIT DATE: 10/29/20/ER Draft Date of Exam:10/29/20 CHEST 1 VIEW, AP/PA ONLY INDICATION: Chest pain. COMPARISON: 11/29/2019. FINDINGS: A single frontal view of the chest demonstrates normal heart size and pulmonary vascularity. The lungs are well aerated and clear. No large pleural effusion or pneumothorax is seen. The visualized osseous structures show no acute abnormalities. IMPRESSION: No acute cardiopulmonary process. Dictated on workstation # [id number] Dict: 10/29/20 1700 Trans: 10/29/20 170 [id number] Interpreted by: ZOILA JOSEPH MD (FELA LION MD) Diagonstic Imaging: CT Plain Films/CT/US/NM/MRI: chest, abdomen, pelvis Comments NAME: [facility] REC#: [id number] PT STATUS: REG ER : 1965 PHYSICIAN: FELA LION MD ADMIT DATE: 10/29/20/ER Signed Date of Exam:10/29/20 CT CHEST/ABDOMEN/PELVIS WO EXAMINATION: CT chest, abdomen and pelvis without intravenous contrast. TECHNIQUE: Multiple contiguous axial images were obtained through the chest, abdomen and pelvis without intravenous contrast. All CT scans use one or more of the following dose optimizing techniques: automated exposure control, MA and/or KvP adjustment based on patient size and exam type or iterative reconstruction. HISTORY: Chest and back pain. COMPARISON: None available. FINDINGS: Thyroid: The thyroid is normal. Mediastinum: Heart size is normal without significant pericardial effusion. The aorta is normal in caliber. There is a stent within the left subclavian artery. No suspicious lymphadenopathy. Lungs and airways: There are mild background emphysematous changes of the lungs. Bibasilar dependent atelectasis. Atelectasis or scarring within the bilateral medial lungs. No consolidation, pleural effusion or pneumothorax. The airways are normal. Solid organs: The liver is normal. The gallbladder is surgically absent. There is no biliary ductal dilation. Pancreas is normal. There is a 2.8 cm left adrenal nodule with Hounsfield units of -4 compatible with adrenal adenoma. The right adrenal gland is unremarkable. The spleen is unremarkable. The kidneys are normal without hydronephrosis. Bowel: The stomach and small bowel are normal without obstruction. The colon is unremarkable. No findings of acute appendicitis. Peritoneum: There is no intraperitoneal free fluid or free air. No suspicious lymphadenopathy. Vasculature: There is atherosclerosis of the aorta without aneurysm. Musculoskeletal: No suspicious osseous lesion or compression fracture. Pelvis: The uterus is surgically absent. No adnexal mass. The urinary bladder is normal. IMPRESSION: 1. No acute abnormality in the chest, abdomen or pelvis. 2. Atherosclerosis of the aorta without aneurysm. Dictated by: Dictated on workstation # [id number] Dict: 10/29/201917 Trans: 10/29/201926 [facility] [id number] Interpreted by: ABEBE ESPARZA DO Electronically signed by: ABEBE ESPARZA DO 10/29/201926 Reviewed: Reviewed by Me (TWYLA AGUILA) Departure Impression Primary Impression: Strep throat Additional Impression: Chest pain Qualified Codes: R07.9 - Chest pain, unspecified Disposition: HOME, SELF-CARE Condition: Stable Departure-Patient Inst. Decision time for Depature: 20:34 (TWYLA AGUILA) Referrals: [facility]AW [facility],LOCAL PHYSICIAN (PCP) Primary Care Physician Patient Instructions: Chest Pain That Is Not Caused by the Heart (DC) Add. Discharge Instructions: Salt water gargles, Tylenol, Chloraseptic throat sprays as necessary. Call Dr. Shaw's clinic and request follow-up appointment in the next week. Return to the ER promptly if you are having crushing chest pain, shortness of air or other worrisome symptoms. All discharge instructions reviewed with patient and/or family. Voiced understanding. Copy Copies To 1: RITA SHAW MD [facility] FELA LION MD Oct 29, 2020 18:06 TWYLA AGUILA Oct 29, 2020 18:36
[2020-10-29] MEDS ORDERED: HOLD METFORMIN - RECEIVED CONTRAST 20 ML VIAL IV SCH (18:15)
[2020-10-29] MEDS ORDERED: CATHETER FLUSH 10 ML SYR IV PRN (18:15)
[2020-10-29] MEDS ORDERED: NS 100 ML (IVPB) BAG IV ONE (18:15)
[2020-10-29] MEDS ORDERED: IOHEXOL 350 MG/ML 100 ML (OMNIPAQUE 350) VIAL IV ONE (18:15)
--- NOTE | 2020-10-29 19:27 | Diagnostic Imaging Report ---
EXAMINATION: CT chest, abdomen and pelvis without intravenous contrast. TECHNIQUE: Multiple contiguous axial images were obtained through the chest, abdomen and pelvis without intravenous contrast. All CT scans use one or more of the following dose optimizing techniques: automated exposure control, MA and/or KvP adjustment based on patient size and exam type or iterative reconstruction. HISTORY: Chest and back pain. COMPARISON: None available. FINDINGS: Thyroid: The thyroid is normal. Mediastinum: Heart size is normal without significant pericardial effusion. The aorta is normal in caliber. There is a stent within the left subclavian artery. No suspicious lymphadenopathy. Lungs and airways: There are mild background emphysematous changes of the lungs. Bibasilar dependent atelectasis. Atelectasis or scarring within the bilateral medial lungs. No consolidation, pleural effusion or pneumothorax. The airways are normal. Solid organs: The liver is normal. The gallbladder is surgically absent. There is no biliary ductal dilation. Pancreas is normal. There is a 2.8 cm left adrenal nodule with Hounsfield units of -4 compatible with adrenal adenoma. The right adrenal gland is unremarkable. The spleen is unremarkable. The kidneys are normal without hydronephrosis. Bowel: The stomach and small bowel are normal without obstruction. The colon is unremarkable. No findings of acute appendicitis. Peritoneum: There is no intraperitoneal free fluid or free air. No suspicious lymphadenopathy. Vasculature: There is atherosclerosis of the aorta without aneurysm. Musculoskeletal: No suspicious osseous lesion or compression fracture. Pelvis: The uterus is surgically absent. No adnexal mass. The urinary bladder is normal. IMPRESSION: 1. No acute abnormality in the chest, abdomen or pelvis. 2. Atherosclerosis of the aorta without aneurysm. Dictated by: Dictated on workstation # [id number]
[2020-10-29 20:43] VITALS: BP 104/58
== END 2020-10-29 20:44 | disposition home or self-care (01) ==
LOC: EDUNIT# 16:29 → ER 16:30
DX: A49.1 Streptococcal infection, unspecified site (principal); R07.9 Chest pain, unspecified; I10 Essential (primary) hypertension; J44.9 Chronic obstructive pulmonary disease, unspecified; E11.9 Type 2 diabetes mellitus without complications; F17.210 Nicotine dependence, cigarettes, uncomplicated; Z86.73 Personal history of transient ischemic attack (TIA), and cerebral infarction without residual deficits; Z88.0 Allergy status to penicillin; Z88.1 Allergy status to other antibiotic agents; Z88.8 Allergy status to other drugs, medicaments and biological substances
CPT/HCPCS: 36415; 71045; 71250; 74176; 80053; 83690; 83735; 83874; 84484; 85025; 85379; 85610; 85730; 93005; 93041

== ENCOUNTER 2023-06-11 20:48 | Emergency (ER) | payer MEDICAID ==
[~2023-06-11] VITALS: Ht 162 cm; Wt 75.7 kg
[~2023-06-11 20:48] MED LIST changes: +ALBU8.5H6 IH; -CITA40TA11 PO; +CITA40TA13 PO; -LACT10SO27 PO; +LACT10SO84 PO; -LISI2.5T PO; +LISI2.5T13 PO; -RT-ALBUINH IH
--- NOTE | 2023-06-11 21:07 | ED Chest Pain ---
General Chief Complaint: Chest Pain Stated Complaint: CHEST PAIN Nursing Triage Note: PATIENT AT [employer], STARTED FEELING HOT, CHEST PAIN RT SIDED RADIATED MATTHEW JAW AND RT SHOULDER. PATIENT NAUSEATED, STATES VOMITTED. PATIENT STATES HX OF MULTIPLE STENTS, RECENT NV. Source: patient Exam Limitations: no limitations History of Present Illness Date Seen by Provider: Jun 11, 2023 Time Seen by Provider: 20:55 Initial Comments Patient is a 57-year-old female who presents to the emergency department with a chief complaint of chest pain, neck pain right shoulder pain, nausea, shortness of breath and diaphoresis. She was at the local [employer] gambling at a slot machine when she had sudden onset of symptoms. She rated the pain at a "8 or 9". She states she is allergic to nitroglycerin so her got her a full- strength aspirin. They waited a few minutes and then decided to call an ambulance. Patient has a history of coronary artery disease with 2 stents placed a couple of months ago at a hospital in [facility]. She is on chronic anticoagulation she states. She has stents in her legs as well and also states she has a stent in one of her valves. She is a chronic daily smoker. She is a diabetic. She takes medication for hypertension. Denies daily alcohol use or illicit drugs. She received 4 mg of Zofran prior to arrival per EMS as well as 5 mg of morphine and continues to have discomfort. She states it initially improved some but now is getting more intense again. She states she also has a history of prior stroke which left her with right eye issues, she wears a patch over her right eye to prevent double vision. Time of onset of pain was approximately 30 to 40 minutes prior to arrival. 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 Associated Symptoms: diaphoresis, nausea/vomiting, shortness of breath Allergies and Home Medications Allergies Coded Allergies: Penicillins (Verified Allergy, Unknown, 09/06/19) amoxicillin (Verified Allergy, Unknown, 09/06/19) ketorolac (Verified Allergy, Unknown, 09/06/19) levofloxacin (Verified Allergy, Unknown, 09/06/19) nitroglycerin (Verified Allergy, Unknown, 06/11/23) sumatriptan (Verified Allergy, Unknown, 09/06/19) trazodone (Verified Allergy, Unknown, 09/06/19) Patient Home Medication List Home Medication List Reviewed: Yes Albuterol Sulfate (Ventolin Hfa) 1 Puff Puff, 2 PUFF IH Q4H, (Reported) Entered as Reported by: KENA THOMAS on 04/14/172353 Aspirin (Aspir 81) 81 Mg Tablet.dr, 81 MG PO, (Reported) Entered as Reported by: KENA THOMAS on 04/14/172353 Aspirin/Acetaminophen/Caffeine (Excedrin Extra Strength Caplet) 1 Each Tablet, 1 EACH PO, (Reported) Entered as Reported by: KENA THOMAS on 04/14/172353 Bupropion HCl (Wellbutrin Sr) 100 Mg Tablet.er, 100 MG PO, (Reported) Entered as Reported by: KENA THOMAS on 04/14/172353 Buspirone HCl (Buspirone HCl) 10 Mg Tablet, 10 MG PO, (Reported) Entered as Reported by: KENA THOMAS on 04/14/172353 Cholecalciferol (Vitamin D) 5,000 Unit Capsule, 5,000 UNIT PO, (Reported) Entered as Reported by: KENA THOMAS on 04/14/172353 Citalopram Hydrobromide (Citalopram HBr) 40 Mg Tablet, 40 MG PO, (Reported) Entered as Reported by: KENA THOMAS on 04/14/172353 Dicyclomine HCl (Bentyl) 10 Mg Capsule, 10 MG PO, (Reported) Entered as Reported by: KENA THOMAS on 04/14/172353 Famotidine (Pepcid) 40 Mg Tablet, 40 MG PO, (Reported) Entered as Reported by: KENA THOMAS on 04/14/172353 Fenofibrate Nanocrystallized (Tricor) 145 Mg Tablet, 145 MG PO, (Reported) Entered as Reported by: KENA THOMAS on 04/14/172353 Fluticasone/Salmeterol (Advair 250-50 Diskus) 1 Each Blst.w.dev, 1 EACH IH, (Reported) Entered as Reported by: KENA THOMAS on 04/14/172353 Gabapentin (Gabapentin) 300 Mg Capsule, 300 MG PO, (Reported) Entered as Reported by: KENA THOMAS on 04/14/172353 Gabapentin (Gabapentin) 600 Mg Tablet, (Reported) Entered as Reported by: ABEBE BLACK on 11/29/191926 Hydrocodone Bit/Acetaminophen (Lortab 7.5 Mg Tablet) 1 Each Tablet, 1 EACH PO Q6H Prescribed by: DIOGO BROWNING on 04/15/17146 Insulin Glargine,Hum.rec.anlog (Lantus Solostar) 100 Unit/1 Ml Insuln.pen, (Reported) Entered as Reported by: ABEBE BLACK on 11/29/191926 Lactulose (Lactulose) 10 Gm/15 Ml Solution, 10 GM PO, (Reported) Entered as Reported by: KENA THOMAS on 04/14/172353 Levothyroxine Sodium (Levothyroxine Sodium) 100 Mcg Tablet, 100 MCG PO, (Reported) Entered as Reported by: KENA THOMAS on 04/14/172353 Lisinopril (Lisinopril) 2.5 Mg Tablet, 2.5 MG PO DAILY, (Reported) Entered as Reported by: KENA THOMAS on 04/14/172353 Metformin HCl (Metformin HCl) 1,000 Mg Tablet, 1,000 MG PO, (Reported) Entered as Reported by: KENA THOMAS on 04/14/172353 Nortriptyline HCl (Nortriptyline HCl) 25 Mg Capsule, 25 MG PO, (Reported) Entered as Reported by: KENA THOMAS on 04/14/172353 Omeprazole Magnesium (Prilosec Otc) 20 Mg Tablet.dr, 20 MG PO, (Reported) Entered as Reported by: KENA THOMAS on 04/14/172353 Ondansetron (Zofran Odt) 4 Mg Tab.rapdis, 4 MG PO, (Reported) Entered as Reported by: KENA THOMAS on 04/14/172353 Pravastatin Sodium (Pravastatin Sodium) 40 Mg Tablet, 40 MG PO, (Reported) Entered as Reported by: KENA THOMAS on 04/14/172353 Prazosin HCl (Minipress) 2 Mg Capsule, 2 MG PO, (Reported) Entered as Reported by: KENA THOMAS on 04/14/172353 Sitagliptin Phosphate (Januvia) 25 Mg Tablet, 25 MG PO, (Reported) Entered as Reported by: KENA THOMAS on 04/14/172353 Sucralfate (Sucralfate) 1 Gm Tablet, 1 GM PO, (Reported) Entered as Reported by: KENA THOMAS on 04/14/172353 Review of Systems Review of Systems Constitutional: see HPI Respiratory: Shortness of Air Cardiovascular: Chest Pain Gastrointestinal: Nausea, Vomiting Musculoskeletal: no symptoms reported Skin: no symptoms reported Psychiatric/Neurological: No Symptoms Reported Endocrine: Excessive Sweating Past Tmnejhw-Qycydh-Ucmmco Hx Patient Social History Tobacco Use?: Yes Tobacco type used: Cigarettes Smoking Status: Current Everyday Smoker Use of E-Cig and/or Vaping dev: No Substance use?: No Alcohol Use?: No Immunizations Up To Date Influenza Vaccine Up-to-Date: Yes; Up-to-Date First/Initial COVID19 Vaccinat: end aug Second COVID19 Vaccination [place]: end september COVID19 Vaccination Date: aug Seasonal Allergies Seasonal Allergies: Yes Past Medical History Surgery/Hospitalization HX: COPD, NV, STENTS, DIABETIC, HTN Surgeries: Yes (HEART CATH) Appendectomy, Ear Surgery, Gallbladder, Hysterectomy, Tubal Ligation, Vascular Surgery Respiratory: Yes Asthma, COPD Currently Using CPAP: No Currently Using BIPAP: No Cardiac: Yes High Cholesterol, Hypertension, Peripheral Vascular Neurological: Yes Headaches /Migraines, TIA 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 oz. 78.582740qh; 28.00 BMI Method:Stated General Appearance: No Apparent Distress, WD/WN, Anxious, Chronically ill HEENT: Moist Mucous Membranes Neck: Normal Inspection Respiratory: Lungs Clear, Normal Breath Sounds, No Accessory Muscle Use, No Respiratory Distress, Other (Tenderness to palpation over the anterior chest wall, sternum and right upper ribs) Cardiovascular: Regular Rate, Rhythm, Normal Peripheral Pulses Gastrointestinal: Non Tender, Soft Extremity: Normal Inspection, No Pedal Edema Neurologic/Psychiatric: Alert, Oriented x3, No Motor/Sensory Deficits, Normal Mood/Affect Skin: Normal Color, Warm/Dry Progress/Results/Core Measures Results/Orders Lab Results Laboratory Tests Test 06/11/23 20:53 06/12/23 00:10 Range/Units White Blood Count 9.5 4.3-11.0 10^3/uL Red Blood Count 4.73 3.80-5.11 10^6/uL Hemoglobin 14.3 11.5-16.0 g/dL Hematocrit 43 35-52 % Mean Corpuscular Volume 90 80-99 fL Mean Corpuscular Hemoglobin 30 25-34 pg Mean Corpuscular Hemoglobin Concent 34 32-36 g/dL Red Cell Distribution Width 12.4 10.0-14.5 % Platelet Count 169 130-400 10^3/uL Mean Platelet Volume 11.8 9.0-12.2 fL Immature Granulocyte % (Auto) 0 % Neutrophils (%) (Auto) 61 42-75 % Lymphocytes (%) (Auto) 31 12-44 % Monocytes (%) (Auto) 6 0-12 % Eosinophils (%) (Auto) 1 0-10 % Basophils (%) (Auto) 1 0-10 % Neutrophils # (Auto) 5.8 1.8-7.8 10^3/uL Lymphocytes # (Auto) 3.0 1.0-4.0 10^3/uL Monocytes # (Auto) 0.6 0.0-1.0 10^3/uL Eosinophils # (Auto) 0.1 0.0-0.3 10^3/uL Basophils # (Auto) 0.1 0.0-0.1 10^3/uL Immature Granulocyte # (Auto) 0.0 0.0-0.1 10^3/uL Prothrombin Time 12.2 12.2-14.7 SEC INR Comment 0.9 0.8-1.4 Activated Partial Thromboplast Time 24 24-35 SEC Sodium Level 138 135-145 MMOL/L Potassium Level 3.9 3.6-5.0 MMOL/L Chloride Level 101 98-107 MMOL/L Carbon Dioxide Level 22 21-32 MMOL/L Anion Gap 15 H 5-14 MMOL/L Blood Urea Nitrogen 15 7-18 MG/DL Creatinine 1.05 0.60-1.30 MG/DL Estimat Glomerular Filtration Rate 62 BUN/Creatinine Ratio 14 Glucose Level 387 H 70-105 MG/DL Calcium Level 9.3 8.5-10.1 MG/DL Corrected Calcium 9.1 8.5-10.1 MG/DL Magnesium Level 1.9 1.6-2.4 MG/DL Total Bilirubin 0.7 0.1-1.0 MG/DL Aspartate Amino Transf (AST/SGOT) 14 5-34 U/L Alanine Aminotransferase (ALT/SGPT) 21 0-55 U/L Alkaline Phosphatase 102 40-136 U/L Troponin I < 0.028 < 0.028 <0.028 NG/ML Total Protein 7.2 6.4-8.2 GM/DL Albumin 4.2 3.2-4.5 GM/DL My Orders Orders - KARIME DALLAS MD Ekg Tracing (06/11/23 20:52) Cbc And Automated Diff (06/11/23 21:12) Magnesium (06/11/23 21:12) Chest 1 View, Ap/Pa Only (06/11/23 21:12) Comprehensive Metabolic Panel (06/11/23 21:12) Protime With Inr (06/11/23 21:12) Partial Thromboplastin Time (06/11/23 21:12) O2 (06/11/23 21:12) Monitor-Rhythm Ecg Trace Only (06/11/23 21:12) Lipid Panel (06/12/23 06:00) Ed Iv/Invasive Line Start (06/11/23 21:12) Troponin I [place] (06/11/23 21:12) Ondansetron Injection (Ondansetron Inj (06/11/23 21:30) Morphine Injection (Morphine Injection (06/11/23 21:30) Diphenhydramine Injection (Diphenhydram (06/11/23 22:45) Ekg Tracing (06/11/23 22:33) Troponin I [place] (06/11/23 23:58) Medications Given in ED Current Medications Medications Dose Ordered Sig/Brayden Route Start Time Stop Time Status Last Admin Dose Admin Diphenhydramine HCl 25 mg ONCE ONCE IVP 06/11/23 22:45 06/11/23 22:46 DC 06/11/23 22:49 25 MG Morphine Sulfate 4 mg ONCE ONCE IVP 06/11/23 21:30 06/11/23 21:32 DC 06/11/23 21:28 4 MG Ondansetron HCl 4 mg ONCE ONCE IVP 06/11/23 21:30 06/11/23 21:32 DC 06/11/23 21:28 4 MG Vital Signs/I&O 06/11/23 20:48 Pulse 95 Resp 20 B/P (MAP) 170/78 (108) Pulse Ox 98 O2 Delivery Room Air Blood Pressure Mean: 108 FSBG Bedside Testing Finger Stick Blood Glucose: 330 Blood Glucose Action Taken: NOTIFIED DR DALLAS Progress Progress Note #1: Time: 21:48 Progress Note Patient seen and evaluated by me. Evaluation today includes history and physical exam and "cardiac work-up" to include CBC, comprehensive metabolic panel, coag profile, serum magnesium, troponin, EKG and single view chest x-ray. Pertinent physical exam findings well-developed well-nourished 57-year-old female who appears in no acute distress. Her vital signs are stable. Heart rate in the 80s, normal blood pressure in the 140s over 70s. Normal oxygen saturations at 94% on room air. Lungs are clear, heart is regular, she has anterior chest wall tenderness to palpation over the mid sternum and right upper rib cage area. No rashes to the skin noted in this area. She has no lower extremity edema, nontender calves. Mentating appropriately. Differential diagnosis ACS, bronchitis, pneumonia, COPD exacerbation, musculoskeletal chest wall pain Labs, EKG independently reviewed and interpreted by me. Her CBC is normal. Her coag profile is normal. Glucose is elevated on her comprehensive metabolic panel at 387, otherwise unremarkable CMP. Her magnesium is 1.9 and troponin is undetectable, less than 0.028. EKG shows normal sinus rhythm at [address] segment elevation or depression, no ectopy is noted. Her chest x-ray is read by radiology as no acute process. In light of known coronary artery disease and only about 30 to 40 minutes of ongoing chest pain it would be prudent to keep her for a 3 to 4-hour repeat troponin. She has been treated in the emergency r oom with another 4 mg of Zofran as well as 4 mg of IV morphine. Resting comfortably. Vital signs are stable at this time, await repeat troponin at approximately midnight. Progress Note #2: Time: 01:00 Progress Note Patient reevaluated once all labs complete, second troponin is also undetectable. She is having no ongoing symptoms of nausea, chest pain, pressure. She feels "back to normal". I strongly encouraged her to contact her rehab tech for a follow-up appointment. She states she has an appointment next month. Advised if she had any return of chest pain especially with shor tness of breath, sweating, nausea that she should immediately return to the nearest emergency room for reevaluation. I encouraged her to continue to quit smoking. She and her are comfortable with plan of care. All questions are sought and answered. Patient is improved at discharge Initial ECG Impression Date: Jun 11, 2023 Initial ECG Impression Time: 20:55 Initial ECG Rate: 89 Initial ECG Rhythm: Normal Sinus Initial ECG Intervals: Normal Initial ECG Impression: Normal EKG : EKG Time: 23:28 Rate: 79 Rhythm: Normal Sinus Intervals: Normal ECG Comparisson: Unchanged ECG Impression: Normal Diagnostic Imaging Diagonstic Imaging: Xray Plain Films/CT/US/NM/MRI: chest Comments [facility], [place] NAME: [facility] REC#: [id number] PT STATUS: REG ER : 1965 PHYSICIAN: KARIME DALLAS MD ADMIT DATE: 06/11/23/ER Draft Date of Exam:06/11/23 CHEST 1 VIEW, AP/PA ONLY INDICATION: Chest pain TECHNIQUE: Single view chest 9:19 PM CORRELATION STUDY: 10/29/2020 FINDINGS: The heart size, mediastinal configuration and pulmonary vascularity are within normal limits. The lungs are clear with no consolidating infiltrate. There is no significant effusion or pneumothorax. IMPRESSION: 1. Negative appearing single view chest. Dictated on workstation # [id number] Dict: 06/11/232132 Trans: 06/11/232132 DO [id number] Interpreted by: CATERINA MACKENZIE DO Electronically signed by: Counseling-Symptomatic: 3-10 Minutes Follow-up with PCP to: Discuss Further Options Departure Impression Primary Impression: Chest pain Qualified Codes: R07.9 - Chest pain, unspecified Disposition: 01 HOME, SELF-CARE Condition: Improved Departure-Patient Inst. Decision time for Depature: 01:01 Referrals: NO,LOCAL PHYSICIAN (PCP/Family) Primary Care Physician Patient Instructions: Chest Pain, Adult ED Add. Discharge Instructions: Please continue to take your daily medications as prescribed. You should continue to try and quit smoking. Please contact your rehab tech tomorrow and let them know you were in the emergency room for chest pain. They want may want to move your follow-up appointment sooner. Return to the emergency room for any new, concerning or emergent complaints. KARIME DALLAS MD Jun 11, 2023 21:07
[2023-06-11 21:27] LABS: BASOPHILS # (AUTO) 0.1 10^3/uL (0.0-0.1); BASOPHILS % (AUTO) 1 % (0-10); EOSINOPHILS # (AUTO) 0.1 10^3/uL (0.0-0.3); EOSINOPHILS % (AUTO) 1 % (0-10); HEMATOCRIT 43 % (35-52); HEMOGLOBIN 14.3 g/dL (11.5-16.0); LYMPHOCYTES % (AUTO) 31 % (12-44); MEAN CORPUSCULAR HEMOGLOBIN 30 pg (25-34); MEAN CORPUSCULAR HGB CONC 34 g/dL (32-36); MEAN CORPUSCULAR VOLUME 90 fL (80-99); MEAN PLATELET VOLUME 11.8 fL (9.0-12.2); MONOCYTES # (AUTO) 0.6 10^3/uL (0.0-1.0); MONOCYTES % (AUTO) 6 % (0-12); NEUTROPHILS # (AUTO) 5.8 10^3/uL (1.8-7.8); NEUTROPHILS % (AUTO) 61 % (42-75); PLATELET COUNT 169 10^3/uL (130-400); WHITE BLOOD COUNT 9.5 10^3/uL (4.3-11.0)
[2023-06-11] MEDS ORDERED: ONDANSETRON INJECTION 4 MG/2 ML (SDV) IVP ONE (21:30)
[2023-06-11] MEDS ORDERED: morphine INJ 4 MG/ML 1 ML (VIAL/SYRINGE) IVP ONE (21:30)
[2023-06-11 21:32] LABS: INR 0.9 (0.8-1.4); PROTHROMBIN TIME PATIENT 12.2 SEC (12.2-14.7)
[2023-06-11 21:33] LABS: ALANINE AMINOTRANSFERASE 21 U/L (0-55); ALBUMIN 4.2 GM/DL (3.2-4.5); ALKALINE PHOSPHATASE 102 U/L (40-136); BILIRUBIN,TOTAL 0.7 MG/DL (0.1-1.0); BUN/CREATININE RATIO 14; CALCIUM 9.3 MG/DL (8.5-10.1); CARBON DIOXIDE 22 MMOL/L (21-32); CHLORIDE 101 MMOL/L (98-107); CREATININE SERUM 1.05 MG/DL (0.60-1.30); GFR ESTIMATED 62; GLUCOSE 387 MG/DL (70-105); MAGNESIUM 1.9 MG/DL (1.6-2.4); POTASSIUM 3.9 MMOL/L (3.6-5.0); SODIUM 138 MMOL/L (135-145); TOTAL PROTEIN 7.2 GM/DL (6.4-8.2)
--- NOTE | 2023-06-11 21:34 | Diagnostic Imaging Report ---
INDICATION: Chest pain TECHNIQUE: Single view chest 9:19 PM CORRELATION STUDY: 10/29/2020 FINDINGS: The heart size, mediastinal configuration and pulmonary vascularity are within normal limits. The lungs are clear with no consolidating infiltrate. There is no significant effusion or pneumothorax. IMPRESSION: 1. Negative appearing single view chest. Dictated by: Dictated on workstation # [id number]
[2023-06-11] MEDS ORDERED: diphenhydrAMINE INJ 50 MG/ML VIAL IVP ONE (22:45)
[2023-06-12 01:10] VITALS: BP 107/68
== END 2023-06-12 01:10 | disposition home or self-care (01) ==
LOC: EDUNIT# 20:48 → ER 20:50
DX: R07.89 Other chest pain (principal); R07.81 Pleurodynia; I25.2 Old myocardial infarction; F17.210 Nicotine dependence, cigarettes, uncomplicated; Z95.5 Presence of coronary angioplasty implant and graft; Z79.01 Long term (current) use of anticoagulants
CPT/HCPCS: 36415; 71045; 80053; 83735; 84484; 85025; 85610; 85730; 93005; 93041